=== PATIENT | female | born 1985 | race Hispanic/Latino ===

== ENCOUNTER 2019-07-17 15:20 | Emergency (ER) | payer SELFPAY ==
[2019-07-17 15:33] VITALS: BP 134/75; PULSE 81; RESP 14; TEMP 36.8; O2SAT 100
--- NOTE | 2019-07-17 17:42 | ED.GENADULT ---
HPI - General Adult General Chief complaint: Wound/Laceration Stated complaint: ABCESS ON LEFT HAND Time Seen by Provider: 07/17/19 15:49 Source: patient Mode of arrival: ambulatory Limitations: no limitations and language barrier History of Present Illness HPI narrative: Patient is a 33-year-old female who presents with a month's duration of red raised lesion to the palm of the hand patient denies injury or trauma or similar occurrence. Patient presents with lesion to the thenar eminence consistent with pyogenic granuloma. Patient denies fever injury trauma or other complaints and is otherwise resting comfortably in the room upon arrival in no distress Review of Systems Review of Systems: All systems reviewed & are unremarkable except as noted in HPI and below PMFSH Social History Social History (Updated 07/17/19 @ 17:43 by Jono Ocasio PA-C) Smoking status: Never smoker Gender identity (if verbalized by the patient): Female Exam Narrative: Exam Narrative: GENERAL: Well-appearing, well-nourished, and in no acute distress. HEAD: Normocephalic, atraumatic. EYES: PERRLA and EOMI. ENT: Nares clear, no rhinorrhea or epistaxis. Mucous membranes moist. EXTREMITIES: Normal range of motion. No edema. SKIN: Warm, dry, no rash. Patient with half centimeter red raised papule to the thenar eminence of the left hand consistent with pyogenic granuloma with small amount of bloody drainage NEURO: No focal deficits. Alert and oriented x3. Neurovascularly intact. Capillary refill less than 2 seconds PSYCH: Normal mood and affect. Course Course Emergency Course: Patient in the room in no distress aware of case findings treatment plan and diagnosis agreeing to follow-up as directed Vital Signs Vital signs: Vital Signs Temperature 98.3 F 07/17/19 15:33 Pulse Rate 81 07/17/19 15:33 Respiratory Rate 14 07/17/19 15:33 Blood Pressure 134/75 07/17/19 15:33 Pulse Oximetry 100 07/17/19 15:33 Temperature 98.3 F 07/17/19 15:33 Pulse Rate 81 07/17/19 15:33 Respiratory Rate 14 07/17/19 15:33 Blood Pressure 134/75 07/17/19 15:33 Pulse Oximetry 100 07/17/19 15:33 Procedures Other Procedure Procedure 1: Other Procedure: Wound was prepped with Shur-Clens spray patient had small piece of tissue excised with scissors measuring less than 2 mm which was cauterized to stop the bleeding nonadhesive dressing 4 x 4 and Coban placed post procedure. Neurovascularly intact pre-and post procedure Medical Decision Making MDM Narrative Medical decision making narrative: Patient in the room aware of case findings treatment plan and diagnosis agreeing to follow-up as directed or to return if symptoms worsen or concerns. Patient was given follow-up with hand surgeon advised to follow with primary care and given reasons to return Vital Signs Vital Signs: Vital Signs Temperature 98.3 F 07/17/19 15:33 Pulse Rate 81 07/17/19 15:33 Respiratory Rate 14 07/17/19 15:33 Blood Pressure 134/75 07/17/19 15:33 Pulse Oximetry 100 07/17/19 15:33 Temperature 98.3 F 07/17/19 15:33 Pulse Rate 81 07/17/19 15:33 Respiratory Rate 14 07/17/19 15:33 Blood Pressure 134/75 07/17/19 15:33 Pulse Oximetry 100 07/17/19 15:33 Discharge Plan Discharge Clinical Impression: Granuloma, pyogenic Patient Disposition: Home, Self-Care Condition: Stable Instructions: Antibiotic Form, Acute Wounds (ED) Additional Instructions: Follow-up with primary care and skin physician in the next 7 days for reevaluation Keep wound clean and dry Return if symptoms worsen or concerns or any increase in redness swelling pain fever over 100.5 or any loss of feeling or function in the extremity Follow patient education sheets Follow-up/Referrals: PHYSICIAN NOT ON STAFF,NONSTAFF [Primary Care Provider] - Taco Narayan MD [Physician] - William Olea MD [Physician] - Stand Alone Forms: Work/
== END 2019-07-17 17:57 | disposition home or self-care (01) ==
PROVIDERS: Emergency Provider Emergency Medicine
DX: L98.0 Pyogenic granuloma (principal)
CPT/HCPCS: 12001; 99282

== ENCOUNTER 2019-08-27 09:20 | Observation (INO) | payer SELFPAY ==
[2019-08-27] VITALS (7 sets, daily range): BP systolic 115–142; BP diastolic 80–95; PULSE 77–103; RESP 16–18; TEMP 36.3–36.6; O2SAT 98–100; BMI 29.6
--- NOTE | ~2019-08-27 | XR_ITS ---
EXAMINATION: XR chest 1V portable INDICATION: Left arm and facial weakness TECHNIQUE: Portable AP chest at 1001 hours COMPARISON: 10/09/2016 FINDINGS: The lungs are free of acute opacities. There is no pleural effusion or pneumothorax. The ca rdiomediastinal silhouette is normal. The visualized bones and soft tissues are unremarkable. IMPRESSION: 1. No acute cardiopulmonary abnormality. Reviewed, dictated and finalized at location A.
--- NOTE | ~2019-08-27 | MR_ITS ---
EXAMINATION: MR brain/brain stem wo/w con DATE: 08/27/2019 14:39 INDICATION: Left-sided paresthesias. Facial weakness. TECHNIQUE: Magnetic resonance imaging (MRI) of the brain and brainstem was performed without and with 13 mL MultiHance intravenous contrast. Sequences included sagittal and axial T1-weighted FSE, axial diffusion-weighted FS EPI, axial T2*-weighted GRE, axial T2-weighted FLAIR Propeller, and axial T2-we ighted Propeller. Postcontrast sequences included axial and coronal T1-weighted FSE. Apparent diffusi on coefficient (ADC) maps were created. COMPARISON: Head CT 08/27/2019 FINDINGS: There is no intracranial hemorrhage, acute infarction, or abnormal intracranial mass lesion . The ventricles are normal in size. The orbits are normal. There is mild mucosal thickening in right maxillary sinus. The mastoid air cells are normal. IMPRESSION: 1. Normal brain. Reviewed, dictated and finalized at location A. IMPRESSION: 1. Normal brain.
--- NOTE | ~2019-08-27 | CT_ITS ---
EXAMINATION: CTA brain carotid DATE: 08/27/2019 10:50 INDICATION: Left-sided weakness TECHNIQUE: Computed tomographic angiography (CTA) of the head was performed without and with 100 mL O mnipaque-350 intravenous contrast. CTA of the neck was performed with intravenous contrast. The dose- length product was 1558.58 mGy-cm. Maximum intensity projection and volume rendered 3D-reconstruction s were created by the technologist on a separate workstation. Automated exposure control and iterativ e reconstruction technique were employed. COMPARISON: None. FINDINGS: HEAD CTA: There is no intracranial hemorrhage, acute infarction, or abnormal mass lesion. The ventric les are normal. There is no abnormal mass effect or midline shift. The wang-white matter differentiat ion is normal. The basal cisterns are patent. The orbits are normal. The paranasal sinuses, mastoids and calvarium are normal. There is no significant stenosis of the basilar artery or posterior cerebral arteries. There is no si gnificant stenosis of the intracranial internal carotid arteries or the anterior or middle cerebral a rteries. The anterior communicating artery and posterior communicating arteries are normal. There is no aneurysm. NECK CTA: The thyroid gland is unremarkable. The submandibular and parotid glands are symmetric. Ther e is no lymphadenopathy. There are no masses identified. The airway is unremarkable. There are no oss eous abnormalities. The superior mediastinum is unremarkable. There is 0% stenosis of the proximal right internal carotid artery relative to normal distal artery l umen diameter (NASCET criteria). There is 0% stenosis of the proximal left internal carotid artery re lative to normal distal artery lumen diameter. IMPRESSION: 1. No acute intracranial abnormality. Normal head CTA. 2. 0% stenosis of the proximal right internal carotid artery relative to normal distal artery lumen d iameter (NASCET criteria). 3. 0% stenosis of the proximal left internal carotid artery relative to normal distal artery lumen di ameter. Reviewed, dictated and finalized at location A. IMPRESSION: 1. No acute intracranial abnormality. Normal head CTA. 2. 0% stenosis of the proximal right internal carotid artery relative to normal distal artery lumen diameter (NASCET criteria). 3. 0% stenosis of the proximal left internal carotid artery relative to normal distal artery lumen diameter.
--- NOTE | 2019-08-27 09:24 | ECG_ITS ---
Measurements Intervals [place] Rate: 103 P: 14 PA: 139 QRS: 15 QRSD: 88 T: -6 QT: 332 QTc: 435 Interpretive Statements SINUS TACHYCARDIA BORDERLINE ST-T WAVE ABNORMALITY- INFERIOR LEADS BASELINE ARTIFACT- V3 BORDERLINE ECG Electronically Signed On 08-27-2019 12:58:52 CDT by Joseph Lee D.O.
--- NOTE | 2019-08-27 09:57 | ED.NEUROSD ---
HPI - Neuro Symptoms/Deficit General Chief Complaint: Neuro Symptoms/Deficit Stated Complaint: left arm numbness Time Seen by Provider: 08/27/19 09:25 Source: patient and family Mode of arrival: ambulatory Limitations: language barrier (greek speaking, using stratus) History of Present Illness HPI Narrative: This patient is a 33 year old female who presents for evaluation of left facial and left arm numbness. She states she was washing dishes when she noticed numbness to her hold face and left hand. She also has left arm weakness. She denies left leg weakness or numbness. She denies any other complaints. She denies chest pain, sob, headache, dizziness or visual changes. Last Observed Normal: 08:30 Location: left face and left arm On Anticoagulants: No Related Data Home Medications Medication Instructions Recorded Confirmed No Home Medications 08/27/19 08/27/19 Allergies Allergy/AdvReac Type Severity Reaction Status Date / Time No Known Allergies Allergy Verified 08/27/19 17:37 Review of Systems Review of Systems: All systems reviewed & are unremarkable except as noted in HPI and below Eyes: Eyes: Denies change in vision Cardiovascular: Cardiovascular: Denies chest pain and Denies radiating jaw, neck or arm pain Respiratory: Respiratory: Denies cough and Denies dyspnea Gastrointestinal: Gastrointestinal: Denies abdominal pain, Denies nausea and Denies vomiting Neurologic: Reports focal weakness and Reports numbness PMFSH Past Medical History Medical History (Updated 08/27/19 @ 20:07 by Stacy Bustos MD) Patient denies medical problems Surgical History Surgical History (Updated 08/27/19 @ 12:09 by Stacy Bustos MD) No significant past surgical history Family History Family History (Updated 08/27/19 @ 17:31 by Jewell Woods NP) Unknown No family history of disorders Social History Social History (Updated 08/27/19 @ 17:32 by Jewell Woods NP) Social History: The patient has a significant other. She states that she does have a job. She has 1 son called Terrance. No durable power bankruptcy attorney for healthcare. She is a full code. She is a smoker drink or use illicit drugs. Smoking status: Never smoker Alcohol intake: current Drinks per week: 1 Substance use: never Substance use type: does not use Spiritual care concerns: No Exam Narrative: Exam Narrative: GENERAL: Well-appearing, well-nourished, and in no acute distress. HEAD: Normocephalic, atraumatic EYES: PERRLA and EOMI, conjunctiva clear without discharge NOSE: Nares clear, no rhinorrhea or epistaxis THROAT:Mucous membranes moist, Oropharynx normal without erythema, exudate, peritonsillar swelling or fluctuance NECK: Supple, without lymphadenopathy or mass RESPIRATORY: No respiratory distress, Airway patent, Respirations non-labored, Clear to auscultation without rales, rhonchi or wheeze HEART: Regular rate and rhythm. No murmur heard. Normal peripheral pulses. ABDOMEN: Soft, nontender, nondistended, normal active bowel sounds. No masses. No rebound or guarding, No organomegaly. EXTREMITIES: No edema, full range of motion. mild decreased left hand visual journalist strength SKIN: Warm, dry, normal color without rash NEURO: Alert and oriented x3. CN 2-12 grossly intact. PSYCH: Normal mood and affect. Course Reevaluation(s) Reevaluation #1: Patient states her symptoms have resolved. Date: 08/27/19 Time: 11:13 Consultations Consultation #1: I Discussed case with Dr. Chahal and Dr. Cristoabl . Patient to be admitted for TIA evaluation. Date: 08/27/19 Time: 12:07 Vital Signs Vital signs: Vital Signs Temperature 97.9 F 08/27/19 09:24 Pulse Rate 87 08/27/19 09:24 Respiratory Rate 18 08/27/19 09:24 Blood Pressure 142/80 H 08/27/19 09:24 Pulse Oximetry 100 08/27/19 09:24 Temperature 97.7 F 08/27/19 13:16 Pulse Rate 90 08/27/19 16:00 Respiratory Rate 18 08/27/19 13:16
[2019-08-27 10:08] LABS: Glucose Point of Care 125 (65-105)
[2019-08-27 10:12] LABS: Basophils Percent Auto 0.4 % (0.2-1.2); Eosinophils Absolute Auto 0.1 K/mm3 (0-0.3); Eosinophils Percent Auto 0.8 % (0-4.4); Hematocrit 40.7 % (37.0-47.0); Hemoglobin 13.2 g/dL (12.0-15.0); Immature Granulocyte Absolute 0.04 K/mm3 (0.00-0.031); Immature Granulocyte Percent A 0.4 % (0-0.5); Lymphocytes Absolute Auto 3.16 K/mm3 (0.9-3.2); Lymphocytes Percent Auto 35.4 % (18.3-44.2); Mean Corpuscular HGB Conc 32.4 g/dl (32-36); Mean Corpuscular Hemoglobin 28.8 pg (26-34); Mean Corpuscular Volume 88.9 fl (80-100); Mean Platelet Volume 9.4 fl (7.4-10.4); Monocytes Absolute Auto 0.5 K/mm3 (0.1-0.6); Monocytes Percent Auto 5.4 % (2.6-8.5); Neutrophils Absolute Auto 5.1 K/mm3 (1.3-6.7); Neutrophils Percent Auto 57.6 % (45.5-73.1); Platelet Count Result 424 k/mm3 (150-375); Red Blood Count 4.58 M/mm3 (4.2-5.4); Red Cell Distribution Width 13.7 % (11.5-14.5); White Blood Count 8.9 K/mm3 (4.5-10.0)
[2019-08-27 10:23] LABS: Blood Urea Nitrogen 11 mg/dL (7-17); Calcium 9.2 mg/dL (8.4-10.2); Carbon Dioxide 26 mmol/L (22-30); Chloride 101 mmol/L (98-107); Estimated Glomerular Filt Rate > 60; Glucose 126 mg/dL (65-105); Potassium 3.6 mmol/L (3.4-5.0); Sodium 138 mmol/L (137-145)
[2019-08-27 10:26] LABS: Prothrombin Time 12.5 Seconds (11.1-14.7)
[2019-08-27 10:27] LABS: Partial Thromboplastin Time 27.3 SECONDS (22.3-36.8)
[2019-08-27 10:35] LABS: Troponin I < 0.012 ng/mL (0.000-0.034)
[2019-08-27] MEDS: ASPIRIN 81 MG CHEWABLE TABLET 324 MG PO (12:43)
--- NOTE | 2019-08-27 13:30 | ADMGEN ---
This patient, Rosa Elena Flores, was admitted to Medical Room 250-01. Patient/family oriented to hospital policies and general routines including ID bracelet, bed and alarms, visiting hours, pain management, procedures, bathroom and other care routines, personal items, smoking policy, room service/diet, and visiting hours. Valuables list has been completed. Information on how to activate the Rapid Response Team has been discussed. Patient/Family are encouraged to report perceived risks to care and to ask questions if they do not understand what they are told or what they should do.
--- NOTE | 2019-08-27 13:30 | PC.NURSE ---
Patient arrived on floor. [id number] Ivania with patient. Patient is Angolan speaking and understands very little Fijian. Offered to use Stratus but [id number] speaks fluent Fijian and Angolan and is willing to interpret. Patient is agreeable to this as well. Admission completed using [id number] as an excellence specialist. MRI explained to patient and MRI screening form completed. [id number] also informed patient that we have [employer] interpreters available at all times and can call them if needed. Patient currently denies any further neuro symptoms. States the numbness in her left arm is resolved and she no longer has any symptoms of numbness or tingling.
--- NOTE | 2019-08-27 17:24 | PM.IMHP ---
H&P: HPI History of Present Illness Chief complaint: tia,left side numbness Narrative: Rosa Elena Flores is a 33 year old female who is primarily Turkish speaking. She does speak a little bit of angulation and we were able to communicate somewhat. Patient tells me that she no longer has any numbness or tingling to her arms. The patient came into the emergency room for evaluation of left facial left arm numbness. Which is now resolved. She was given an aspirin. She has no further complaints. Her CT and MRI of the brain or found to be negative. She has no other complaints at this time. No fever no chills. No nausea no vomiting no diarrhea. Date of service 08/27/2019 Review of Systems Review of Systems: All systems reviewed & are unremarkable except as noted in HPI and below Constitutional: Constitutional: Reports as per HPI and Reports no additional constitutional complaints Eyes: Eyes: Reports as per HPI and Reports no additional eye complaints ENT: Reports system reviewed and no additional complaints, except as documented and Reports Normal hearing present Cardiovascular: Cardiovascular: Reports no additional cardiovascular complaints Respiratory: Respiratory: Reports no additional respiratory complaints and Reports no additional respiratory complaints Gastrointestinal: Gastrointestinal: Reports as per HPI and Reports no additional gastrointestinal complaints Musculoskeletal: Musculoskeletal: Reports no additional musculoskeletal complaints Integumentary/Breasts: Skin/Breast: Reports system reviewed and no additional complaints, except as docu and Reports as per HPI Neurologic: Reports system reviewed and no additional complaints, except as documented, Reports as per HPI and Reports Normal hearing present Psychiatric: Psychiatric: Reports no additional psychiatric complaints and Reports as per HPI Endocrine: Endocrine: Reports no additional endocrine complaints Hematologic/Lymphatic: Hematologic/Lymphatic: Reports no additional hematologic/lymphatic complaints Allergic/Immunologic: Allergic/Immunologic: Reports no additional allergic/immunologic complaints [facility] Past Medical History Medical History (Updated 08/27/19 @ 17:35 by Jewell Woods NP) Patient denies medical problems Surgical History Surgical History (Updated 08/27/19 @ 12:09 by Stacy Bustos MD) No significant past surgical history Family History Family History (Updated 08/27/19 @ 17:31 by Jewell Woods NP) Unknown No family history of disorders Social History Social History (Updated 08/27/19 @ 17:32 by Jewell Woods NP) Social History: The patient has a significant other. She states that she does have a job. She has 1 son called Terrance. No durable power business attorney for healthcare. She is a full code. She is a smoker drink or use illicit drugs. Smoking status: Never smoker Alcohol intake: current Drinks per week: 1 Substance use: never Substance use type: does not use Spiritual care concerns: No Meds Home Medications and Allergies Allergies Allergy/AdvReac Type Severity Reaction Status Date / Time No Known Allergies Allergy Verified 08/27/19 12:22 Vital Signs Vital Signs - 24 hr 08/27/19 09:24 08/27/19 10:07 08/27/19 11:12 Temperature 36.6 C Pulse Rate 87 103 H 103 H Respiratory Rate 18 Blood Pressure 142/80 H 120/83 Pulse Oximetry 100 98 08/27/19 13:16 08/27/19 16:00 Temperature 36.5 C Pulse Rate 99 90 Respiratory Rate 18 Blood Pressure 126/95 H Pulse Oximetry 100 Exam Const: General: cooperative, healthy appearing, comfortable, no acute distress, well developed, alert, awake and Physically active Nutritional Appearance: average body habitus and well nourished Orientation/consciousness: oriented to person, oriented to place, oriented to time and patient oriented x3 Limitations: no limitations HENMT: Head: normal to inspection, No palpable skull fracture prese
[2019-08-28] VITALS: PULSE 72
--- NOTE | 2019-08-28 | ECHO_ITS ---
Patient Info Name: Rosa Elena Flores Age: 33 years : 1985 Gender: Female Ht: 59 in Wt: 147 lbs BSA: 1.69 m2 HR: 82 bpm BP: 105 / 69 mmHg Heart Rhythm: Sinus Rhythm Technical Quality: Good Exam Date: 08/28/2019 9:36 AM Exam Location: [facility] Patient Status: Inpatient Admit Date: 08/27/2019 Staff Ordering Physician: Jewell Woods NP Budget And Policy Analyst: Mane Herrera RDCS Attending Provider: Zofia Hurley PA-C Referring Physician: Chuck ALEXANDER; Exam Type: CA echo doppler w bubble study Study Info Indications 435.9 - TIA Complete two-dimensional, color flow and Doppler transthoracic echocardiogram is performed with agitated saline. Contrast/Agitated Saline Contrast/Ag. Saline: Agitated Saline Amount: 18.00 ml Administered By: Sonu Farfan RN Existing IV Access: Yes History/Risk Factors TIA symptoms w/ left sided numbness/tingling. Summary 1. Left ventricular systolic function is normal, estimated at 60-65%. 2. There is trace mitral valve regurgitation. 3. There is trace tricuspid valve regurgitation. 4. No pulmonary hypertension, estimated pulmonary arterial systolic pressure is 23 mmHg. Left Ventricle Left ventricular chamber dimension is normal. Left ventricular systolic function is normal, estimated at 60-65%. There is no increased left ventricular wall thickness. The left ventricular diastolic function is normal. Right Ventricle Right ventricular chamber dimension is normal. Right ventricular systolic function is normal. Left Atria Left atrial chamber dimension is normal. Right Atria Right atrial chamber dimension is normal. Atrial Septum Intact interatrial septum visualized by agitated saline imaging. Aortic Valve The aortic valve is trileaflet. There is no aortic valve stenosis. There is no aortic valve regurgitation. Pulmonic Valve The pulmonic valve is normal. There is no pulmonic valve stenosis. There is no pulmonic regurgitation. Mitral Valve The mitral valve has normal leaflets. There is no mitral valve stenosis. There is trace mitral valve regurgitation. Tricuspid Valve The tricuspid valve leaflets are normal. There is no significant tricuspid valve stenosis. There is trace tricuspid valve regurgitation. No pulmonary hypertension, estimated pulmonary arterial systolic pressure is 23 mmHg. Pericardium/Pleural The pericardium appears normal. There is no pericardial effusion. Inferior Vena Cava Normal inferior vena cava with >50% collapse upon inspiration consistent with normal right atrial pressure, 5 mmHg. Aorta The aortic root size at the sinus of Valsalva is normal. The prox ascending aorta size is normal. Left Ventricular Outflow Tract Name Value Normal LVOT 2D LVOT Diameter 1.9 cm LVOT Doppler LVOT Peak Gradient 5 mmHg LVOT Mean Gradient 2 mmHg LVOT VTI 20 cm LVOT VTI/AV VTI Ratio 0.9 LVOT Stroke Volume
[2019-08-28 04:00] VITALS: PULSE 82
[2019-08-28 05:10] LABS: Basophils Absolute Auto 0.1 K/mm3 (0.0-0.1); Basophils Percent Auto 0.5 % (0.2-1.2); Eosinophils Absolute Auto 0.2 K/mm3 (0-0.3); Eosinophils Percent Auto 1.5 % (0-4.4); Hematocrit 38.3 % (37.0-47.0); Hemoglobin 12.6 g/dL (12.0-15.0); Immature Granulocyte Absolute 0.04 K/mm3 (0.00-0.031); Immature Granulocyte Percent A 0.4 % (0-0.5); Lymphocytes Absolute Auto 3.56 K/mm3 (0.9-3.2); Lymphocytes Percent Auto 33.4 % (18.3-44.2); Mean Corpuscular HGB Conc 32.9 g/dl (32-36); Mean Corpuscular Volume 88.2 fl (80-100); Mean Platelet Volume 9.2 fl (7.4-10.4); Monocytes Absolute Auto 0.7 K/mm3 (0.1-0.6); Monocytes Percent Auto 6.4 % (2.6-8.5); Neutrophils Absolute Auto 6.2 K/mm3 (1.3-6.7); Neutrophils Percent Auto 57.8 % (45.5-73.1); Platelet Count Result 384 k/mm3 (150-375); Red Blood Count 4.34 M/mm3 (4.2-5.4); Red Cell Distribution Width 13.8 % (11.5-14.5); White Blood Count 10.7 K/mm3 (4.5-10.0)
[2019-08-28 05:26] LABS: Lactic Acid 1.2 mmol/L (0.7-2.1)
[2019-08-28 05:30] LABS: Alanine Aminotransferase 35 U/L (4-35); Albumin Level 4.3 g/dL (3.5-5.1); Alkaline Phosphatase 79 U/L (38-126); Aspartate Amino Transferase 31 U/L (14-36); Bilirubin,Total 0.5 mg/dL (0.2-1.3); Blood Urea Nitrogen 13 mg/dL (7-17); CRP 1.6 mg/dL (<1.0); Calcium 8.9 mg/dL (8.4-10.2); Carbon Dioxide 27 mmol/L (22-30); Chloride 100 mmol/L (98-107); Cholesterol 178 mg/dL (0-200); Estimated Glomerular Filt Rate > 60; Glucose 111 mg/dL (65-105); HDL Direct 27 mg/dL; Magnesium 2.1 mg/dL (1.6-2.3); Potassium 3.8 mmol/L (3.4-5.0); Sodium 135 mmol/L (137-145); Triglycerides 135 mg/dL (<150)
[2019-08-28 05:34] VITALS: BP 105/69; PULSE 79; RESP 16; TEMP 36.2; O2SAT 99
[2019-08-28 05:39] LABS: LDL Cholesterol Direct 124 mg/dL
[2019-08-28 08:00] VITALS: PULSE 84
[2019-08-28] MEDS: ASPIRIN 81 MG CHEWABLE TABLET PO (09:13)
[2019-08-28 12:00] VITALS: PULSE 80
--- NOTE | 2019-08-28 13:23 | CONS_ITS ---
DATE OF CONSULTATION: 08/27/2019 HISTORY OF PRESENT ILLNESS: A 33-year-old right-handed female has been admitted to [facility] through the emergency room for the complaint of tingling and numbness of the left side. She was initially evaluated in the emergency room. Symptomatology was resolved by the time she came to the floor. CT scan and MRI of the brain were negative with no other complaints in addition to the physician on the regular floor. The patient has no history of any other symptomatology. MEDICATIONS: She is not taking any medication. PAST SURGICAL HISTORY: Has had no surgery done in the past. SOCIAL HISTORY: She is current alcohol drinker, only 1 drink per week. Never smoker. ALLERGIES: NOT ALLERGIC TO ANY. PHYSICAL EXAMINATION: VITAL SIGNS: At the time of admission revealed a temp of 36.6, pulse 87, respirations 18, blood pressure 142/80, pulse ox 98 percent. GENERAL: Examination revealed her to be awake, alert, cooperative, in no obvious acute distress. No complaint of the headache. EAR, NOSE, THROAT: Examination normal. NECK: Supple with no cervical bruit. No thyromegaly. No lymphadenopathy. Normal range of motion. HEART: Regular with no murmur. LUNGS: Clear to auscultation. ABDOMEN: Soft. No organomegaly. NEUROLOGIC: She is awake, alert. Follows instruction by gesture. Pupils round, regular. Gastelum of vision full. Extraocular movements full. Face symmetrical. Tongue midline. Motor examination revealed no drift of one side or other side. Tone normal. Reflexes symmetrical. Plantars downgoing. LABORATORY STUDIES: Evaluation up until now revealed negative CT scan of the head, normal CTA of the brain, normal MRI of the brain. The patient's routine lab includes a CBC with WBC 10.7, hemoglobin 12.6, platelet count 384. Sodium 135, creatinine 0.60, glucose only 111. C-reactive protein 1.6. IMPRESSION AND PLAN: At this stage, she can be treated only for the possible transient ischemic attack. No further intervention is necessary. She can follow in the office and continue taking one baby aspirin daily. JESSIKA NUNEZ M.D. PRACTICAL NURSING INSTRUCTOR PRACTICAL NURSING INSTRUCTOR D I MT: Tom
[2019-08-28 13:55] VITALS: BP 128/84; PULSE 90; RESP 16; TEMP 36.3; O2SAT 100
--- NOTE | 2019-08-28 15:19 | PM.DS ---
DS: Admitting Diagnosis Admitting Diagnosis Admitting Diagnosis: Transient cerebral ischemic attack, unspecified DS: Discharge Diagnosis Discharge Diagnosis (1) TIA (transient ischemic attack): Code(s): G45.9 - Transient cerebral ischemic attack, unspecified Status: Acute Assessment and Plan: Head and neck CTA showed no acute intracranial abnormalities and 0% stenosis of right and left ICA. Brain MRI was normal and showed no evidence of intracranial hemorrhage, infarction, or mass. Echo was performed with EF normal at 60 to 65%, trace MR and TR, and normal pulmonary artery pressure. Electrolytes were within normal limits. Glucose was stable. Blood pressure was generally well controlled. Lipid panel was normal with a slightly decreased HDL. DS: Summary Hospital Course Reason for hospitalization: Left arm numbness Hospital Course: Date of admission: 08/27/2019 Date of discharge: 08/28/2019 Rosa Elena Flores is a previously healthy 33 year old female with no past medical history. Somali is her first language but she is able to communicate in Haitian. She presented to the emergency department on 08/27/2019 at approximately 10:00 a.m. with complaints of left facial and left arm numbness. It is noted that she was washing dishes when she noticed the numbness occur. She also complained of left-sided weakness, but denied headache, dizziness, or visual changes. At presentation, AVSS, CBC and BMP unremarkable with glucose 126, troponin <0.012, CXR with no acute cardiopulmonary abnormalities, and head and neck CTA performed as noted above. She was admitted to the hospitalist service and seen in consultation by neurology for workup of TIA, with results as noted above. Her numbness resolved entirely. By the time of my evaluation, she had no neurologic deficits, sensation was intact, and strength was 5/5 throughout. She was feeling much better and was eager to return home. We discussed worrisome signs and symptoms for which she should return, as well as lifestyle changes which she may benefit from implementing. She will begin taking a baby aspirin daily. She has been encouraged to follow-up with her PCP in 1-2 weeks and she may follow-up with neurology as needed. She was discharged home in hemodynamically stable condition on 08/28/2019. Status at Discharge Functional status at discharge: independent ambulation Overall status at discharge: patient is back to baseline Time Spent with Patient Time attestation: Total time spent providing and/or coordinating discharge services: 37 minutes Time spent: Greater than 30 minutes Exam Narrative: Exam Narrative: Ms. Tavia Flores is examined alone today. She is a well-nourished 33 year old female who is lying supine in bed. She appears comfortable and is in no acute respiratory distress. HR 79, BP 105/69, RR 16, T 97.1?, 99% on room air Neuro: awake, alert and oriented x4, speech clear, no focal neuro deficits noted, full sensation, strength 5/5 throughout, muscles with normal bulk and contour, able to perform plantar flexion and dorsiflexion HEENMT: normocephalic, atraumatic, face symmetric, EOMI, sclerae anicteric, moist oral mucosa, tongue midline Neck: supple, no lymphadenopathy Respiratory: clear to auscultation bilaterally, nonlabored breathing Cardio: regular rate, regular rhythm with S1-S2 Abdomen: Nondistended, normoactive bowel sounds, soft, nontender to palpation, Extremities: BLE without edema, erythema, cyanosis, clubbing, or tenderness to palpation, DP pulses 2+ bilaterally Skin: no rashes or lesions, warm and dry Psych: Appropriate mood and affect, judgment and insight intact DS: Data Data Completed and Pending Labs on day of discharge: Labs from last 24 hours 08/28/19 08/28/19 08/28/19 04:54 04:54 04:54 WBC RBC Hgb Hct MCV MCH MCHC RDW Plt Count MPV Immature Gran % (Auto) Neut % (Auto) Lymph % (Auto)
--- NOTE | 2019-08-28 15:29 | PCCCNOTE ---
On 08/28/19, the student, Glenys Pimentel, provided care and completed [facility] documentation on this patient. I have reviewed the student's documentation and agree with the findings.
--- NOTE | 2019-08-28 15:43 | PC.NURSE ---
Taina used for discharge instructions. Cheo #[id number] was the shell grader used to convey the discharge information to the patient. All questions and concerns answered at this time, patient verbalized understanding.
== END 2019-08-28 16:10 | disposition home or self-care (01) ==
LOC: ANHED 12:41 → ANH2MED 12:42
PROVIDERS: Nurse Practitioner; Admitting Provider Internal Medicine; Emergency Provider General Practice; Visit Provider Family Medicine
DX: G45.9 Transient cerebral ischemic attack, unspecified (principal)
CPT/HCPCS: 36415; 70496; 70498; 70553; 71045; 80048; 80053; 80061; 81025; 82948; 83605; 83735; 84443; 84484; 85025; 85610; 85730; 86140; 93005; 93306; 96375; 99285; A9270; A9577; G0378; G0379; Q9967

== ENCOUNTER 2020-02-20 03:38 | Emergency (ER) | payer SELFPAY ==
--- NOTE | ~2020-02-20 | CT_ITS ---
EXAMINATION: CT brain wo con INDICATION: Dizziness COMPARISON: 08/27/2019 TECHNIQUE: Standard unenhanced head CT. The dose-length product (DLP) was 529.67 mGy-cm. The mA was a djusted according to patient size. Iterative reconstruction technique was employed. FINDINGS: There is no intracranial hemorrhage, acute infarction, or abnormal mass lesion. The ventric les are normal. There is no abnormal mass effect or midline shift. The wang-white matter differentiat ion is normal. The basal cisterns are patent. The orbits are normal. The paranasal sinuses, mastoids and calvarium are normal. IMPRESSION: 1. No acute intracranial abnormality. Reviewed, dictated and finalized at location A. INE CLE[employer]ER
[2020-02-20 03:48] VITALS: BP 116/84; PULSE 84; RESP 17; TEMP 36.9; O2SAT 100
--- NOTE | 2020-02-20 03:56 | ED.GENADULT ---
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 She reports sudden onset dizziness at 630 pm yesterday. She states she feels like the room is spinning when she lays down. She denies associated headache, otalgia, ear drainage or sinus concerns. She reports she had some blurred vision but that has resolved. She also denies associated focal weakness, numbness or tingling. Related Data Allergies Allergy/AdvReac Type Severity Reaction Status Date / Time No Known Allergies Allergy Verified 08/27/19 17:37 Review of Systems Review of Systems: All systems reviewed & are unremarkable except as noted in HPI and below PMFSH Past Medical History Medical History (Updated 02/20/20 @ 06:42 by Stacy Bustos MD) Patient denies medical problems Surgical History Surgical History (Updated 08/27/19 @ 12:09 by Stacy Bustos MD) No significant past surgical history Family History Family History (Updated 08/27/19 @ 17:31 by Jewell Woods NP) Unknown No family history of disorders Social History Social History (Updated 08/27/19 @ 17:32 by Jewell Woods NP) Social History: The patient has a significant other. She states that she does have a job. She has 1 son called Terrance. No durable power deputy prosecuting attorney for healthcare. She is a full code. She is a smoker drink or use illicit drugs. Smoking status: Never smoker Alcohol intake: current Drinks per week: 1 Substance use: never Substance use type: does not use Spiritual care concerns: No Exam Const: General: no acute distress and alert Orientation/consciousness: patient oriented x3 HENMT: Head: normal to inspection Ears: external ears normal and TM's normal bilaterally Eyes: Alignment and Position: alignment normal Eyelids: eyelids normal Conjunctivae: conjunctivae normal Pupils: Equal, round and reactive pupils present EOM: EOMs intact bilaterally Other: no nystagmus Neck: Neck: normal visual inspection Chest: Chest palpation & inspection: normal inspection of the chest Resp: Effort & Inspection: normal respiratory effort Cardio: Rate: regular rate Rhythm: regular rhythm Heart sounds: no murmurs GI: GI Palp: Yes Soft to palpation, No Tenderness to palpation present (GI) and No Guarding due to palpation present (GI) Auscultation: normal bowel sounds Skin: General skin exam: normal color Rashes: no rashes Neuro: General: patient oriented x3, moves all extremities, no meningeal signs, no focal motor deficits and CN's II-XI intact bilaterally Cranial nerves: Yes Nystagmus not present Speech: normal speech Gait exam (Neuro): Normal gait present Extrem: General: normal to inspection Psych: Mental Status: mental status grossly normal Affect: normal affect Course Reevaluation(s) Reevaluation #1: I 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 She reports only small amount of dizziness. She denies nausea or vomiting. She has no neurological deficits to suggest CVA. I discussed treatment for vertigo. Date: 02/20/20 Time: 06:39 Vital Signs Vital signs: Vital Signs Temperature 98.4 F 02/20/20 03:48 Pulse Rate 84 02/20/20 03:48 Respiratory Rate 17 02/20/20 03:48 Blood Pressure 116/84 02/20/20 03:48 Pulse Oximetry 100 02/20/20 03:48 Temperature 98.4 F 02/20/20 03:48 Pulse Rate 68 02/20/20 05:10 Respiratory Rate 15 02/20/20 05:10 Blood Pressure 115/79 02/20/20 05:10 Pulse Oximetry 98 02/20/20 05:10 Medical Decision Making Vital Signs Vital Signs: Vital Signs Temperature 98.4 F 02/20/20 03:48 Pulse Rate 84 02/20/20 03:48 Resp
[2020-02-20] MEDS: ONDANSETRON INJ 4 MG/2 ML VIAL IV PUSH (04:09)
[2020-02-20] MEDS: MECLIZINE HCL 25 MG TABLET PO (04:10)
[2020-02-20 04:13] VITALS: BP 125/79; BP 128/85; BP 129/82; PULSE 81; PULSE 91; PULSE 95
[2020-02-20 04:23] LABS: Basophils Percent Auto 0.4 % (0.2-1.2); Eosinophils Percent Auto 0.4 % (0-4.4); Hematocrit 40.7 % (37.0-47.0); Hemoglobin 13.2 g/dL (12.0-15.0); Immature Granulocyte Absolute 0.03 K/mm3 (0.00-0.031); Immature Granulocyte Percent A 0.3 % (0-0.5); Lymphocytes Absolute Auto 2.39 K/mm3 (0.9-3.2); Lymphocytes Percent Auto 23.8 % (18.3-44.2); Mean Corpuscular HGB Conc 32.4 g/dl (32-36); Mean Corpuscular Hemoglobin 28.2 pg (26-34); Monocytes Absolute Auto 0.5 K/mm3 (0.1-0.6); Monocytes Percent Auto 5.1 % (2.6-8.5); Platelet Count Result 405 k/mm3 (150-375); Red Blood Count 4.68 M/mm3 (4.2-5.4); Red Cell Distribution Width 14.3 % (11.5-14.5); White Blood Count 10.1 K/mm3 (4.5-10.0)
[2020-02-20 04:36] LABS: Add Urine Microscopic? YES; Appearance Urine Clear (Clear); Bilirubin Urine Negative (Negative); Blood Urine 2+ (Negative); Color Urine Yellow (Yellow); Glucose Urine UA Negative (Negative); Ketones Urine Negative (Negative); Leukocyte Esterase Ur Trace LEU/UL (Negative); Mucus Urine Few /lpf; Nitrate Urine Negative (Negative); Protein Urine Negative (Negative); Squamous Epithelial Cell Urine Many /hpf (Few); Urobilinogen Urine Negative mg/dL (<2.0)
[2020-02-20 04:41] LABS: Alanine Aminotransferase 22 U/L (4-35); Albumin Level 4.6 g/dL (3.5-5.1); Alkaline Phosphatase 88 U/L (38-126); Anion Gap 7 mmol/L (8-16); Aspartate Amino Transferase 26 U/L (14-36); Bilirubin,Total 0.4 mg/dL (0.2-1.3); Blood Urea Nitrogen 10 mg/dL (7-17); Calcium 9.5 mg/dL (8.4-10.2); Carbon Dioxide 30 mmol/L (22-30); Chloride 102 mmol/L (98-107); Estimated Glomerular Filt Rate > 60; Glucose 139 mg/dL (65-105); Lipase 42 U/L (23-300); Potassium 4.1 mmol/L (3.4-5.0); Sodium 139 mmol/L (137-145)
[2020-02-20 05:10] VITALS: BP 115/79; PULSE 68; RESP 15; O2SAT 98
[2020-02-20] MEDS: PROMETHAZINE HCL 25 MG/ML AMPUL 12.5 MG IV PUSH (05:27)
--- NOTE | 2020-02-20 05:31 | PC.NURSE ---
50mL normal saline used for dilution and administration of promethazine.
[2020-02-20 06:56] VITALS: BP 110/62; PULSE 75; RESP 14; TEMP 36.7; O2SAT 96
== END 2020-02-20 06:57 | disposition home or self-care (01) ==
PROVIDERS: Emergency Provider General Practice
DX: R42 Dizziness and giddiness (principal)
CPT/HCPCS: 36415; 70450; 80053; 81001; 81025; 83690; 85025; 87086; 96374; 96375; 99284; A9270; J2405; J2550

== ENCOUNTER 2020-06-13 21:06 | Emergency (ER) | payer SELFPAY ==
--- NOTE | ~2020-06-13 | XR_ITS ---
EXAMINATION: XR chest 2V DATE: 06/13/2020 21:31 INDICATION: Left chest pain. Shortness of breath. TECHNIQUE: Frontal and lateral views of the chest were obtained. COMPARISON: Chest single view 08/27/2019, chest CT 10/09/2016 FINDINGS: The chest demonstrates clear lungs without pneumonia, pleural effusion, or pneumothorax. Th e heart size is normal. IMPRESSION: 1. No acute cardiopulmonary disease. Reviewed, dictated and finalized at location A.
--- NOTE | 2020-06-13 21:07 | ECG_ITS ---
Measurements Intervals [place] Rate: 94 P: 23 [place]: 121 QRS: 16 QRSD: 86 T: -5 QT: 351 QTc: 439 Interpretive Statements SINUS RHYTHM BORDERLINE T WAVE ABNORMALITY- INFERIOR LEADS BASELINE ARTIFACT- III, AVR, AVF, V1-V2 BORDERLINE ECG Electronically Signed On 06-14-2020 6:55:02 CDT by Joseph Lee D.O.
[2020-06-13 21:13] VITALS: BP 139/124; PULSE 95; RESP 16; TEMP 36.7; O2SAT 100
[2020-06-13 21:25] LABS: Basophils Absolute Auto 0.1 K/mm3 (0.0-0.1); Basophils Percent Auto 0.5 % (0.2-1.2); Eosinophils Absolute Auto 0.1 K/mm3 (0-0.3); Eosinophils Percent Auto 1.2 % (0-4.4); Hematocrit 40.7 % (37.0-47.0); Hemoglobin 13.2 g/dL (12.0-15.0); Immature Granulocyte Absolute 0.04 K/mm3 (0.00-0.031); Immature Granulocyte Percent A 0.4 % (0-0.5); Lymphocytes Absolute Auto 4.74 K/mm3 (0.9-3.2); Lymphocytes Percent Auto 44.7 % (18.3-44.2); Mean Corpuscular HGB Conc 32.4 g/dl (32-36); Mean Corpuscular Hemoglobin 28.8 pg (26-34); Mean Corpuscular Volume 88.9 fl (80-100); Mean Platelet Volume 8.7 fl (7.4-10.4); Monocytes Absolute Auto 0.7 K/mm3 (0.1-0.6); Monocytes Percent Auto 6.7 % (2.6-8.5); Neutrophils Absolute Auto 4.9 K/mm3 (1.3-6.7); Neutrophils Percent Auto 46.5 % (45.5-73.1); Platelet Count Result 416 k/mm3 (150-375); Red Blood Count 4.58 M/mm3 (4.2-5.4); Red Cell Distribution Width 13.8 % (11.5-14.5); White Blood Count 10.6 K/mm3 (4.5-10.0)
[2020-06-13] MEDS: ASPIRIN 81 MG CHEWABLE TABLET 324 MG PO (21:33)
[2020-06-13] MEDS: KETOROLAC 15 MG/ML VIAL (*BKC) IV PUSH (21:34)
[2020-06-13 21:35] LABS: INR 0.9; Prothrombin Time 12.9 Seconds (11.1-14.7)
[2020-06-13 21:36] LABS: Partial Thromboplastin Time 28.9 SECONDS (22.3-36.8)
[2020-06-13 21:39] LABS: Alanine Aminotransferase 21 U/L (4-35); Albumin Level 4.8 g/dL (3.5-5.1); Alkaline Phosphatase 80 U/L (38-126); Aspartate Amino Transferase 26 U/L (14-36); Bilirubin,Total 0.3 mg/dL (0.2-1.3); Lipase 56 U/L (23-300)
[2020-06-13 21:40] LABS: Anion Gap 6 mmol/L (8-16); Blood Urea Nitrogen 9 mg/dL (7-17); Calcium 9.7 mg/dL (8.4-10.2); Carbon Dioxide 31 mmol/L (22-30); Chloride 104 mmol/L (98-107); Estimated Glomerular Filt Rate > 60; Glucose 106 mg/dL (65-105); Potassium 3.6 mmol/L (3.4-5.0); Sodium 141 mmol/L (137-145)
[2020-06-13 21:51] LABS: Troponin I < 0.012 ng/mL (0.000-0.034)
--- NOTE | 2020-06-13 22:34 | ED.GENADULT ---
HPI - General Adult General Chief complaint: Chest Pain Stated complaint: chest pain Time Seen by Provider: 06/13/20 21:11 History of Present Illness HPI narrative: Patient is a 34-year-old female who presents the emergency department with chief complaint of chest wall pain. The patient reported she has been having pain in the left side of her chest that she reports is heaviness but also reports that it is worse with inspiration and worse with movement. Patient states that she is not had any fever chills denies trauma the patient denies prior history of cardiac disease. Patient denies smoking Related Data Allergies Allergy/AdvReac Type Severity Reaction Status Date / Time No Known Allergies Allergy Verified 08/27/19 17:37 PMFSH Past Medical History Medical History Patient denies medical problems Surgical History Surgical History No significant past surgical history Family History Family History Unknown No family history of disorders Social History Social History Social History: The patient has a significant other. She states that she does have a job. She has 1 son called Terrance. No durable power immigration attorney for healthcare. She is a full code. She is a smoker drink or use illicit drugs. Smoking status: Never smoker Alcohol intake: current Drinks per week: 1 Substance use: never Substance use type: does not use Spiritual care concerns: No Exam Narrative: Exam Narrative: GENERAL: Well-appearing, well-nourished, and in no acute distress. HEAD: Normocephalic, atraumatic. EYES: PERRLA and EOMI. ENT: Nares clear, no rhinorrhea or epistaxis. Mucous membranes moist. NECK: Supple. CHEST: Clear to auscultation. No respiratory distress. Chest wall is tender to palpation in the left sternal border. HEART: Regular rate and rhythm. No murmur heard. Normal peripheral pulses. ABDOMEN: Soft, nontender, nondistended, normal active bowel sounds. EXTREMITIES: Normal range of motion. No edema. SKIN: Warm, dry, no rash. NEURO: No focal deficits. Alert and oriented x3. PSYCH: Normal mood and affect. Course Vital Signs Vital signs: Vital Signs Temperature 36.7 C 06/13/20 21:13 Pulse Rate 95 06/13/20 21:13 Respiratory Rate 16 06/13/20 21:13 Blood Pressure 139/124 H 06/13/20 21:13 Pulse Oximetry 100 06/13/20 21:13 Temperature 36.7 C 06/13/20 21:13 Pulse Rate 95 06/13/20 21:13 Respiratory Rate 16 06/13/20 21:13 Blood Pressure 139/124 H 06/13/20 21:13 Pulse Oximetry 100 06/13/20 21:13 Medical Decision Making Vital Signs Vital Signs: Vital Signs Temperature 36.7 C 06/13/20 21:13 Pulse Rate 95 06/13/20 21:13 Respiratory Rate 16 06/13/20 21:13 Blood Pressure 139/124 H 06/13/20 21:13 Pulse Oximetry 100 06/13/20 21:13 Temperature 36.7 C 06/13/20 21:13 Pulse Rate 95 06/13/20 21:13 Respiratory Rate 16 06/13/20 21:13 Blood Pressure 139/124 H 06/13/20 21:13 Pulse Oximetry 100 06/13/20 21:13 Lab Data Result diagrams: 06/13/20 21:20 06/13/20 21:20 Labs: Lab Results 06/13/20 06/13/20 06/13/20 Range/Units 21:18 21:20 21:20 WBC 10.6 H (4.5-10.0) K/mm3 RBC 4.58 (4.2-5.4) M/mm3 Hgb 13.2 (12.0-15.0) g/dL Hct 40.7 (37.0-47.0) % MCV 88.9 (80-100) fl MCH 28.8 (26-34) pg MCHC 32.4 (32-36) g/dl RDW 13.8 (11.5-14.5) % Plt Count 416 H (150-375) k/mm3 MPV 8.7 (7.4-10.4) fl Immature Gran % (Auto) 0.4 (0-0.5) % Neut % (Auto) 46.5 (45.5-73.1) % Lymph % (Auto) 44.7 H (18.3-44.2) % [place] % (Auto) 6.7 (2.6-8.5) % Eos % (Auto) 1.2 (0-4.4) % Baso % (Auto) 0.5 (0.2-1.2) % Lymph # (Auto) 4.74 H (0.9-3.
[2020-06-13 22:45] VITALS: BP 106/72; PULSE 74; RESP 16; TEMP 36.8; O2SAT 100
== END 2020-06-13 22:46 | disposition home or self-care (01) ==
PROVIDERS: Emergency Provider Emergency Medicine
DX: R07.89 Other chest pain (principal); R94.31 Abnormal electrocardiogram [ECG] [EKG]
CPT/HCPCS: 36415; 71046; 80048; 80076; 83690; 84484; 85025; 85610; 85730; 93005; 96374; 99284; A9270; J1885

== ENCOUNTER 2020-07-08 20:48 | Emergency (ER) | payer SELFPAY ==
[2020-07-08 21:39] VITALS: BP 137/85; PULSE 89; RESP 18; TEMP 36.7; O2SAT 99
[2020-07-09 01:22] VITALS: BP 121/68; PULSE 78; RESP 16; O2SAT 99
[2020-07-09 01:30] LABS: Basophils Percent Auto 0.4 % (0.2-1.2); Eosinophils Absolute Auto 0.2 K/mm3 (0-0.3); Eosinophils Percent Auto 1.5 % (0-4.4); Hematocrit 38.9 % (37.0-47.0); Hemoglobin 12.5 g/dL (12.0-15.0); Immature Granulocyte Absolute 0.04 K/mm3 (0.00-0.031); Immature Granulocyte Percent A 0.4 % (0-0.5); Lymphocytes Absolute Auto 4.04 K/mm3 (0.9-3.2); Lymphocytes Percent Auto 37.5 % (18.3-44.2); Mean Corpuscular HGB Conc 32.1 g/dl (32-36); Mean Corpuscular Hemoglobin 28.3 pg (26-34); Mean Corpuscular Volume 88.2 fl (80-100); Mean Platelet Volume 8.8 fl (7.4-10.4); Monocytes Absolute Auto 0.7 K/mm3 (0.1-0.6); Monocytes Percent Auto 6.3 % (2.6-8.5); Neutrophils Absolute Auto 5.8 K/mm3 (1.3-6.7); Neutrophils Percent Auto 53.9 % (45.5-73.1); Platelet Count Result 371 k/mm3 (150-375); Red Blood Count 4.41 M/mm3 (4.2-5.4); Red Cell Distribution Width 13.6 % (11.5-14.5); White Blood Count 10.8 K/mm3 (4.5-10.0)
[2020-07-09] MEDS: diphenhydrAMINE HCl INJ 50 MG/ML VIAL 25 MG IV PUSH (01:35)
[2020-07-09] MEDS: KETOROLAC 30 MG/ML VIAL (*BKC) IV PUSH (01:35)
[2020-07-09] MEDS: SODIUM CHLORIDE 0.9% IV 1,000 ML 999 ML IV CONT (01:35)
[2020-07-09] MEDS: METOCLOPRAMIDE HCL INJ 10 MG/2 ML VIAL IV PUSH (01:35)
[2020-07-09 01:47] LABS: Alanine Aminotransferase 19 U/L (4-35); Albumin Level 4.5 g/dL (3.5-5.1); Alkaline Phosphatase 78 U/L (38-126); Anion Gap 9 mmol/L (8-16); Aspartate Amino Transferase 27 U/L (14-36); Bilirubin,Total 0.3 mg/dL (0.2-1.3); Blood Urea Nitrogen 11 mg/dL (7-17); Calcium 9.9 mg/dL (8.4-10.2); Carbon Dioxide 29 mmol/L (22-30); Chloride 104 mmol/L (98-107); Estimated CRCL calculation 93 ml/min; Estimated Glomerular Filt Rate > 60; Glucose 108 mg/dL (65-105); Lipase 62 U/L (23-300); Potassium 4.2 mmol/L (3.4-5.0); Sodium 142 mmol/L (137-145)
--- NOTE | 2020-07-09 01:50 | ED.HA ---
HPI - Headache General Chief Complaint: Headache Stated Complaint: headache Time Seen by Provider: 07/09/20 00:21 History of Present Illness HPI Narrative: Patient is a 34-year-old female who presents ER with left-sided headache. Began yesterday and has been persistent. No relief with [id number] medication. Reports it has a numb sensation as well that side of her head. No slurred speech or change in vision or change in hearing. No aggravating or alleviating factors that she can identify. Patient also reports that she has been having some epigastric pain for same amount of time. No nausea/vomiting with this. Does not seem to be worsened by eating or drinking. Located in her upper abdomen does not radiate. Related Data Allergies Allergy/AdvReac Type Severity Reaction Status Date / Time No Known Allergies Allergy Verified 07/08/20 21:42 Review of Systems Review of Systems: All systems reviewed & are unremarkable except as noted in HPI and below Constitutional: Constitutional: Denies chills, Denies fever(s) and Denies weakness Eyes: Eyes: Denies change in vision and Denies photophobia Gastrointestinal: Gastrointestinal: Reports abdominal pain, Denies diarrhea, Denies nausea and Denies vomiting Neurologic: Denies syncope, Reports headache(s), Denies focal weakness and Reports numbness PMFSH Past Medical History Medical History Patient denies medical problems Surgical History Surgical History No significant past surgical history Family History Family History Unknown No family history of disorders Social History Social History Social History: The patient has a significant other. She states that she does have a job. She has 1 son called Terrance. No durable power district attorney for healthcare. She is a full code. She is a smoker drink or use illicit drugs. Smoking status: Never smoker Alcohol intake: current Drinks per week: 1 Substance use: never Substance use type: does not use Spiritual care concerns: No Exam Narrative: Exam Narrative: GENERAL: Well-appearing, well-nourished, and in no acute distress. HEAD: Normocephalic, atraumatic. EYES: PERRL and EOMI. CHEST: Clear to auscultation. No respiratory distress. HEART: Regular rate and rhythm. Normal peripheral pulses. ABDOMEN: Soft, mild epigastric discomfort without guarding, nondistended, normal active bowel sounds. EXTREMITIES: Normal range of motion. No edema. SKIN: Warm, dry, no rash. NEURO: Clear speech. Cranial nerves II through XII intact. Alert and oriented x3. PSYCH: Normal mood and affect. Course Course Emergency Course: Headache symptoms resolved with Reglan/Benadryl/Toradol. No abdominal pain at this time. Informed results. Discharge home. Vital Signs Vital signs: Vital Signs Temperature 98.1 F 07/08/20 21:39 Pulse Rate 89 07/08/20 21:39 Respiratory Rate 18 07/08/20 21:39 Blood Pressure 137/85 07/08/20 21:39 Pulse Oximetry 99 07/08/20 21:39 Temperature 98.1 F 07/08/20 21:39 Pulse Rate 89 07/08/20 21:39 Respiratory Rate 18 07/08/20 21:39 Blood Pressure 137/85 07/08/20 21:39 Pulse Oximetry 99 07/08/20 21:39 MDM - Headache Lab Data Result diagrams: 07/09/20 01:25 Labs: Lab Results 07/09/20 07/09/20 Range/Units 01:25 01:33 Sodium 142 (137-145) mmol/L Potassium 4.2 (3.4-5.0) mmol/L Chloride 104 (98-107) mmol/L Carbon Dioxide 29 (22-30) mmol/L Anion Gap 9 (8-16) mmol/L BUN 11 (7-17) mg/dL Creatinine 0.60 L (0.7-1.0) mg/dL Estim Creat Clear Calc 93 ml/min Estimated GFR > 60 (59 - ) Glucose 108 H (65-105) mg/dL Calcium 9.9 (8.4-10.2) mg/dL Total Bilirubin 0.3 (0.2-1.3)
[2020-07-09 01:58] LABS: Appearance Urine Clear (Clear); Bilirubin Urine Negative (Negative); Blood Urine 1+ (Negative); Color Urine Yellow (Yellow); Glucose Urine UA Negative (Negative); Ketones Urine Negative (Negative); Leukocyte Esterase Ur Negative LEU/UL (Negative); Nitrate Urine Negative (Negative); Protein Urine Negative (Negative); Specific Grav Ur 1.025 (1.001-1.035)
[2020-07-09 02:09] LABS: Amorphous Sediment Urine Few; Bacteria Urine Trace /hpf; Mucus Urine Rare /lpf; Squamous Epithelial Cell Urine Rare /hpf (Few)
[2020-07-09 02:11] LABS: Add Urine Microscopic? YES
[2020-07-09 02:55] VITALS: BP 124/71; PULSE 74; RESP 14; O2SAT 99
== END 2020-07-09 02:55 | disposition home or self-care (01) ==
PROVIDERS: Emergency Provider Emergency Medicine
DX: G43.909 Migraine, unspecified, not intractable, without status migrainosus (principal)
CPT/HCPCS: 36415; 80053; 81001; 83690; 85025; 96361; 96374; 96375; 99284; J1200; J1885; J2765; J7030

== ENCOUNTER 2020-08-05 20:38 | Emergency (ER) | payer SELFPAY ==
--- NOTE | ~2020-08-05 | CT_ITS ---
EXAMINATION: CT brain wo con EXAM DATE: 08/05/2020 21:50 INDICATION: Left hand and arm paresthesia for one day. TECHNIQUE: Spiral CT of the head was performed without contrast. Axial, coronal and sagittal images were reviewed. The dose-length product (DLP) for this examination was 529.67 mGy-cm. The exposure w as tailored according to patient size, and iterative reconstruction (ASIR) was used as additional dos e reduction technique. Comparison is made to prior examination from 02/20/2020. FINDINGS: There is no acute intraparenchymal hemorrhage. No evidence of intraparenchymal brain mass lesion. No evidence of acute infarction. There is no mass effect or midline shift. The ventricles are normal in size. There are no extra-axial collections. There are no acute calvarial fractures. T he orbits are unremarkable. Soft tissue is unremarkable. The visualized sinuses and mastoid air [place] ls are well aerated. IMPRESSION: 1. No acute intracranial findings. Reviewed, dictated and finalized at location A.
--- NOTE | ~2020-08-05 | XR_ITS ---
EXAMINATION: XR chest 1V portable EXAM DATE: 08/05/2020 21:43 INDICATION: Numbness left side of head. Left arm paresthesia. TECHNIQUE: Portable AP frontal chest x-ray was obtained. Comparison is made to prior examination from 06/13/2020. FINDINGS: The lungs are clear. There are no pleural effusions. Cardiomediastinal silhouette is norm al. There is no pneumothorax suspected. The bones and soft tissues are unremarkable. IMPRESSION: No acute cardiopulmonary findings. Reviewed, dictated and finalized at location A.
--- NOTE | ~2020-08-05 | CT_ITS ---
EXAMINATION: CTA brain carotid EXAM DATE: 08/05/2020 23:47 INDICATION: Left sided numbness . TECHNIQUE: Spiral CTA of the carotid arteries was performed with intravenous injection 100 cc of Om nipaque 350. Axial, coronal, sagittal reformatted images reviewed. Additional reformatted images cre ated on dedicated 3-D workstation. NASCET comparable standard used to assess the degree of arterial stenosis. Spiral CT angiogram cerebral arteries performed with the same intravenous injection of con trast. Source images of the brain CTA transferred to dedicated workstation for 3-D rotational image c reation. Coronal, sagittal maximum intensity pixel images also reviewed. The dose-length product (D LP) for this examination was 952.72 mGy-cm. The exposure was tailored according to patient size, an d iterative reconstruction (ASIR) was used as additional dose reduction technique. There is no prio r study for comparison. FINDINGS: There is no carotid bulb plaque, 0% carotid stenosis bilaterally. There is no carotid or v ertebral basilar arterial dissection or fibromuscular dysplasia. There are no cerebral artery aneurys ms. There is symmetric cerebral artery arborization. The sagittal, transverse and sigmoid sinuses enh ance normally, no venous sinus thrombosis. Internal cerebral veins also enhance normally. Incidental Findings: None. IMPRESSION: 1. No acute carotid or intracranial findings. 2. Carotid bulb 0% stenosis bilaterally. Reviewed, dictated and finalized at location A.
[2020-08-05 20:57] VITALS: BP 131/81; PULSE 91; RESP 20; TEMP 36.7; O2SAT 100
--- NOTE | 2020-08-05 21:32 | ECG_ITS ---
Measurements Intervals [place] Rate: 94 P: 14 [place]: 134 QRS: 21 QRSD: 88 T: -7 QT: 335 QTc: 421 Interpretive Statements SINUS RHYTHM BORDERLINE T WAVE ABNORMALITY- ANT/INF LEADS BORDERLINE ECG Electronically Signed On 08-06-2020 6:02:14 CDT by Joseph Lee D.O.
[2020-08-05 22:07] VITALS: BP 125/84; PULSE 92; RESP 20; O2SAT 99
[2020-08-05 22:19] LABS: Anion Gap 11 mmol/L (8-16); Blood Urea Nitrogen 10 mg/dL (7-17); Calcium 9.4 mg/dL (8.4-10.2); Carbon Dioxide 26 mmol/L (22-30); Chloride 105 mmol/L (98-107); Estimated CRCL calculation 91 ml/min; Estimated Glomerular Filt Rate > 60; Glucose 109 mg/dL (65-105); INR 0.9; Potassium 3.3 mmol/L (3.4-5.0); Sodium 142 mmol/L (137-145)
[2020-08-05 22:20] LABS: Partial Thromboplastin Time 27.3 SECONDS (22.3-36.8)
[2020-08-05 22:22] LABS: Basophils Percent Auto 0.4 % (0.2-1.2); Eosinophils Absolute Auto 0.2 K/mm3 (0-0.3); Eosinophils Percent Auto 1.9 % (0-4.4); Hematocrit 37.4 % (37.0-47.0); Hemoglobin 12.1 g/dL (12.0-15.0); Immature Granulocyte Absolute 0.04 K/mm3 (0.00-0.031); Immature Granulocyte Percent A 0.4 % (0-0.5); Lymphocytes Absolute Auto 3.79 K/mm3 (0.9-3.2); Lymphocytes Percent Auto 33.8 % (18.3-44.2); Mean Corpuscular HGB Conc 32.4 g/dl (32-36); Mean Corpuscular Hemoglobin 28.3 pg (26-34); Mean Corpuscular Volume 87.4 fl (80-100); Mean Platelet Volume 8.8 fl (7.4-10.4); Monocytes Absolute Auto 0.7 K/mm3 (0.1-0.6); Monocytes Percent Auto 6.3 % (2.6-8.5); Neutrophils Absolute Auto 6.4 K/mm3 (1.3-6.7); Neutrophils Percent Auto 57.2 % (45.5-73.1); Platelet Count Result 437 k/mm3 (150-375); Red Blood Count 4.28 M/mm3 (4.2-5.4); Red Cell Distribution Width 13.6 % (11.5-14.5); White Blood Count 11.2 K/mm3 (4.5-10.0)
[2020-08-05 22:31] LABS: Troponin I < 0.012 ng/mL (0.000-0.034)
[2020-08-05 23:15] VITALS: BP 116/81; PULSE 94; RESP 18; O2SAT 100
[2020-08-06] MEDS: SODIUM CHLORIDE 0.9% IV 1,000 ML 999 ML IV CONT
[2020-08-06 00:16] VITALS: BP 127/84; PULSE 92; RESP 18; O2SAT 99
--- NOTE | 2020-08-06 00:46 | ED.NEUROSD ---
HPI - Neuro Symptoms/Deficit General Chief Complaint: Extremity Problem,Nontraumatic Stated Complaint: left sided numbness from head to shoulder Time Seen by Provider: 08/05/20 22:00 Source: patient Mode of arrival: ambulatory Limitations: no limitations History of Present Illness HPI Narrative: Patient is a 34-year-old female complaining of left-sided numbness, face and left upper extremity that started yesterday around 3 PM. Patient denies any speech or visual disturbance, focal weakness or unsteady gait. Patient denies any chest pain, shortness of breath, Deondre pain, nausea, vomiting, fever or chills. Related Data Allergies Allergy/AdvReac Type Severity Reaction Status Date / Time No Known Allergies Allergy Verified 08/05/20 21:05 Review of Systems Review of Systems: All systems reviewed & are unremarkable except as noted in HPI and below Constitutional: Constitutional: Denies body ache(s), Denies chills, Denies excessive sweating, Denies fatigue, Denies fever(s), Denies headache(s), Denies lethargy, Denies malaise, Denies weakness and Denies weight loss Eyes: Eyes: Denies blurry vision, Denies change in vision and Denies loss of vision ENT: Denies dizziness, Denies ear discharge, Denies headache(s), Denies lip swelling, Denies epistaxis, Denies nasal congestion, Denies neck pain, Denies throat swelling and Denies tongue swelling Cardiovascular: Cardiovascular: Denies chest pain, Denies chest pain at rest, Denies chest pain with activity, Denies diaphoresis, Denies rapid heart rate, Denies edema, Denies irregular heart rhythm, Denies lightheadedness, Denies palpitations, Denies dyspnea and Denies dyspnea on exertion Respiratory: Respiratory: Denies chest congestion, Denies cough, Denies hemoptysis, Denies dyspnea and Denies dyspnea on exertion Gastrointestinal: Gastrointestinal: Denies abdominal pain, Denies melena, Denies hematochezia, Denies diarrhea, Denies nausea, Denies vomiting and Denies hematemesis Musculoskeletal: Musculoskeletal: Denies abnormal gait, Denies deformity, Denies joint swelling, Denies limited range of motion, Denies neck pain and Denies numbness Neurologic: Denies Abnormal speech present, Denies abnormal gait, Denies confusion, Denies dizziness, Denies headache(s), Denies focal weakness, Denies loss of vision, Denies Other visual disturbances, Denies Sensory deficit (Neuro) and Denies weakness Psychiatric: Psychiatric: Denies confusion, Denies depression, Denies auditory hallucinations, Denies homicidal ideation and Denies suicidal ideation Endocrine: Endocrine: Denies cold intolerance, Denies excessive sweating, Denies fatigue, Denies heat intolerance and Denies palpitations Hematologic/Lymphatic: Hematologic/Lymphatic: Denies easy bleeding and Denies easy bruising Allergic/Immunologic: Allergic/Immunologic: Denies lip swelling, Denies throat swelling and Denies tongue swelling PMFSH Past Medical History Medical History Patient denies medical problems Surgical History Surgical History No significant past surgical history Family History Family History Unknown No family history of disorders Social History Social History Social History: The patient has a significant other. She states that she does have a job. She has 1 son called Terrance. 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 She is a full code. She is a smoker drink or use illicit drugs. Smoking status: Never smoker Alcohol intake: current Drinks per week: 1 Substance use: never Substance use type: does not use Spiritual care concerns: No Comments Past medical history: None Social history: Non-smoker, no drug use, occasional EtOH use Exam Const: General: cooperative, healt
[2020-08-06 01:14] VITALS: BP 130/86; PULSE 87; RESP 18; O2SAT 97
--- NOTE | 2020-08-09 19:21 | PC.NURSE ---
LATE ENTRY This note is being entered to document information to the patient's record. The following information was omitted on [],ns iv stoped @[id number] by [].
== END 2020-08-06 01:27 | disposition home or self-care (01) ==
PROVIDERS: Emergency Medicine; Emergency Provider Emergency Medicine
DX: R20.0 Anesthesia of skin (principal); R94.31 Abnormal electrocardiogram [ECG] [EKG]
CPT/HCPCS: 36415; 70450; 70496; 70498; 71045; 80048; 81025; 84484; 85025; 85610; 85730; 93005; 99284; J7030; Q9967

== ENCOUNTER 2020-08-30 18:40 | Emergency (ER) | payer SELFPAY ==
[2020-08-30 18:50] VITALS: BP 128/88; PULSE 92; RESP 16; TEMP 37.3; O2SAT 99
--- NOTE | 2020-08-30 18:52 | ED.GENADULT ---
HPI - General Adult General Chief complaint: Arrhythmia/Palpitations Stated complaint: chest palpitations Time Seen by Provider: 08/30/20 18:55 Source: patient and RN notes reviewed Mode of arrival: ambulatory Limitations: no limitations History of Present Illness HPI narrative: 34-year-old female presents concern for palpitations. Reports prior to arrival she had what she felt like a fast heartbeat for approximately 1 hour. She denies any chest pain, trouble breathing, diaphoresis, nausea, syncope or near syncope during this episode of fast heartbeat. She denies any diagnosis or problems with her heart in the past. She reports several years ago she had a isolated incident of palpitations that was never diagnosed as anything significant. She denies current fast heartbeat, palpitations, shortness of breath, chest pain. MD complaint: Palpitations Related Data Home Medications Medication Instructions Recorded Confirmed No Home Medications 08/30/20 08/30/20 Allergies Allergy/AdvReac Type Severity Reaction Status Date / Time No Known Allergies Allergy Verified 08/30/20 18:55 Review of Systems Review of Systems: Narrative: CONSTITUTIONAL: Denies malaise, chills, sweats, or fever. CARDIOVASCULAR: Denies chest pain, palpitations, or edema. RESPIRATORY: Denies cough or dyspnea. GASTROINTESTINAL: Denies nausea, vomiting NEUROLOGIC: Denies numbness, weakness, or headache. All systems reviewed & are unremarkable except as noted in HPI and below PMFSH Past Medical History Medical History Patient denies medical problems Surgical History Surgical History No significant past surgical history Family History Family History Unknown No family history of disorders Social History Social History Social History: The patient has a significant other. She states that she does have a job. She has 1 son called Terrance. No durable power salad maker for healthcare. She is a full code. She is a smoker drink or use illicit drugs. Smoking status: Never smoker Alcohol intake: current Drinks per week: 1 Substance use: never Substance use type: does not use Spiritual care concerns: No Comments At time of signature, agree with nursing past medical, surgical, social and family history. There is no relevant family history pertinent to the presenting complaint Exam Narrative: Exam Narrative: GENERAL: Well-appearing, well-nourished, and in no acute distress. HEAD: Normocephalic, atraumatic. EYES: PERRLA, conjunctivae clear ENT: Mucous membranes moist. NECK: Supple. No lymphadenopathy. No jugular venous distension, thyromegaly, or carotid bruits. Carotids were easily palpable bilaterally. CHEST: No respiratory distress. Clear to auscultation. No bony deformities, no asymmetry. Speaks in full sentences. HEART: Regular rate and rhythm. No murmur heard. Normal peripheral pulses. Capillary refill less than 3 seconds SKIN: Warm, dry, no rash. NEURO: Alert and oriented x3. PSYCH: Normal mood and affect Course Course Emergency Course: Discussed with patient following up with her primary care provider for further evaluation of her history of palpitations. Gave reasons to go to the emergency room if symptoms return with chest pain, shortness of breath, syncope etc. Patient is aware of, understands and agrees to treatment plan. Anticipatory guidance given. Patient agrees to follow-up as directed and is aware of reasons to seek care at the emergency department. Portions of this record may have been created with voice recognition software Vital Signs Vital signs: Vital Signs Temperature 99.2 F 08/30/20 18:50 Pulse Rate 92 08/30/20 18:50 Respiratory Rate 16 08/30/20 18:50 B
== END 2020-08-30 19:07 | disposition home or self-care (01) ==
PROVIDERS: Emergency Provider Nurse Practitioner; PCP Physician Assistant
DX: R00.2 Palpitations (principal)
CPT/HCPCS: 99211; G0463

== ENCOUNTER 2022-08-10 11:36 | Emergency (ER) | payer MEDICAID, SELFPAY ==
--- NOTE | ~2022-08-10 | US_ITS ---
EXAMINATION: US OB <= 14 weeks fetus DATE: 08/10/2022 12:48 INDICATION: Vaginal bleeding. TECHNIQUE: Real-time transabdominal pelvic ultrasound was performed. COMPARISON: None. FINDINGS: The uterus measures 13.8 x 7.9 x 10.9 cm. There is an intrauterine gestational sac. The crown r ump length measures 5.6 cm, which correlates with an estimated gestational age of 12 weeks and 1 day( s) (+/-) 1 week(s) and 1 day(s). heart motion is not identified by M-mode Doppler. The ovaries are not visualized. There is no free fluid in the pelvis. IMPRESSION: 1. demise. Reviewed, dictated and finalized at location A. IMPRESSION: 1. demise.
[2022-08-10 11:37] VITALS: BP 121/66; PULSE 69; RESP 16; TEMP 36.6; O2SAT 99
--- NOTE | 2022-08-10 12:20 | ED.PREGNANCY ---
HPI - General Chief complaint: Vaginal Bleeding Stated complaint: vaginal bleeding - 17 weeks Time Seen by Provider: 08/10/22 12:01 History of Present Illness HPI Narrative: Patient is a 36-year-old female G2, P1 at approximately 17 weeks gestation presenting with vaginal bleeding. Patient states that yesterday she began having some vaginal bleeding that then seemed to resolve. Today she was taking a shower and she noticed more vaginal bleeding so she became concerned. She denies cramping or pain. Denies lightheadedness. Denies further complaints. Related Data Home Medications Medication Instructions Recorded Confirmed No Home Medications 08/30/20 08/30/20 Allergies Allergy/AdvReac Type Severity Reaction Status Date / Time No Known Allergies Allergy Verified 08/30/20 18:55 Review of Systems Review of Systems: All systems reviewed & are unremarkable except as noted in HPI and below PMFSH Past Medical History Medical History Patient denies medical problems Surgical History Surgical History No significant past surgical history Family History Family History Unknown No family history of disorders Social History Social History Social History: The patient has a significant other. She states that she does have a job. She has 1 son called Terrance. No durable power erisa attorney for healthcare. She is a full code. She is a smoker drink or use illicit drugs. Smoking status: Never smoker Alcohol intake: current Drinks per week: 1 Substance use: never Substance use type: does not use Spiritual care concerns: No Exam Narrative: GENERAL: Well-appearing, well-nourished, and in no acute distress. HEAD: Normocephalic, atraumatic. EYES: PERRLA and EOMI. ENT: Nares clear, no rhinorrhea or epistaxis. Mucous membranes moist. NECK: Supple. CHEST: Clear to auscultation. No respiratory distress. HEART: Regular rate and rhythm ABDOMEN: Soft, appropriately gravid abdomen, nontender, no guarding or rebound EXTREMITIES: Normal range of motion. No edema. SKIN: Warm, dry, no rash. NEURO: No focal deficits. Alert and oriented x3. PSYCH: Normal mood and affect. Course Vital Signs Vital signs: Vital Signs Temperature 97.9 F 08/10/22 11:37 Pulse Rate 69 08/10/22 11:37 Respiratory Rate 16 08/10/22 11:37 Blood Pressure 121/66 08/10/22 11:37 Pulse Oximetry 99 08/10/22 11:37 Oxygen Delivery Room Air 08/10/22 11:37 Temperature 97.9 F 08/10/22 11:37 Pulse Rate 65 08/10/22 15:09 Respiratory Rate 18 08/10/22 15:09 Blood Pressure 118/74 08/10/22 15:09 Pulse Oximetry 99 08/10/22 15:09 Oxygen Delivery Room Air 08/10/22 11:37 MDM - OB/Uterine Contractions MDM Narrative Medical decision making narrative: Patient is a 36-year-old female presenting with vaginal bleeding in the setting of second trimester . Vitals within normal limits. Exam remarkable for the above. Plan for blood work, ultrasound. Ultrasound shows demise. Blood work is unremarkable. Patient is O+, will not require RhoGAM. Spoke with Dr. Kim who has sent her chart to his clinic. They will be calling her shortly to schedule close follow-up on August 12. Discussed appropriate bleeding precautions with the patient and her sister. They voiced understanding and are agreeable with this plan. Discharged in stable condition. Differential Diagnosis Differential diagnosis: Likely other (vaginal bleeding in , miscarriage) Medical Records Attestation: I reviewed the patient's medical records. Lab Data Attestation: I reviewed the patient's lab results. 08/10/22 12:47 08/10/22 12:47 Labs: Lab Results
[2022-08-10 12:53] LABS: Basophils Percent Auto 0.3 % (0.2-1.2); Eosinophils Absolute Auto 0.1 K/mm3 (0-0.3); Eosinophils Percent Auto 0.9 % (0-4.4); Hematocrit 33.1 % (37.0-47.0); Hemoglobin 10.7 g/dL (12.0-15.0); Immature Granulocyte Absolute 0.06 K/mm3 (0.00-0.031); Immature Granulocyte Percent A 0.6 % (0-0.5); Lymphocytes Absolute Auto 2.09 K/mm3 (0.9-3.2); Lymphocytes Percent Auto 20.8 % (18.3-44.2); Mean Corpuscular HGB Conc 32.3 g/dl (32-36); Mean Corpuscular Hemoglobin 28.2 pg (26-34); Mean Corpuscular Volume 87.3 fl (80-100); Mean Platelet Volume 8.7 fl (7.4-10.4); Monocytes Absolute Auto 0.8 K/mm3 (0.1-0.6); Monocytes Percent Auto 7.7 % (2.6-8.5); Neutrophils Percent Auto 69.7 % (45.5-73.1); Platelet Count Result 386 k/mm3 (150-375); Red Blood Count 3.79 M/mm3 (4.2-5.4); Red Cell Distribution Width 14.2 % (11.5-14.5)
[2022-08-10 13:02] LABS: Alanine Aminotransferase 15 U/L (6-35); Albumin Level 4.1 g/dL (3.5-5.1); Alkaline Phosphatase 48 U/L (38-126); Anion Gap 8 mmol/L (8-16); Aspartate Amino Transferase 18 U/L (14-36); Bilirubin,Total 0.3 mg/dL (0.2-1.3); Blood Urea Nitrogen 6 mg/dL (7-17); Calcium 9.5 mg/dL (8.4-10.2); Carbon Dioxide 25 mmol/L (22-30); Chloride 105 mmol/L (98-107); Estimated Glomerular Filt Rate > 60; Glucose 103 mg/dL (65-110); Potassium 3.5 mmol/L (3.4-5.0); Prothrombin Time 13.3 Seconds (11.1-14.7); Sodium 138 mmol/L (137-145)
[2022-08-10 13:18] LABS: Beta HCG Quantitative 397.35 mIU/ML
[2022-08-10 15:09] VITALS: BP 118/74; PULSE 65; RESP 18; O2SAT 99
== END 2022-08-10 15:10 | disposition home or self-care (01) ==
PROVIDERS: Emergency Provider Emergency Medicine; PCP Physician Assistant
DX: O02.1 Missed abortion (principal)
CPT/HCPCS: 36415; 76801; 80053; 84702; 85025; 85461; 85610; 85730; 86850; 86900; 86901; 99284

== ENCOUNTER 2022-08-13 01:40 | Observation (INO) | payer MEDICAID, SELFPAY ==
[2022-08-12 14:06] VITALS: BP 115/74; PULSE 88; RESP 16; TEMP 37.2; O2SAT 99; BMI 28.1
--- NOTE | 2022-08-12 14:36 | PC.NURSE ---
Report to the Outpatient Waiting Room, entrance under the green pavilion located off [facility], at time __12:45 PM on date __08/13/22 . Planned Procedure Time: __2:45PM . Time changes happen often and if your time is changed the preop area will call you the afternoon before. - You and your visitor will be asked to self-screen and do not enter if you have any COVID symptoms. - A mask is optional within the hospital at this time. Patients may have clear liquids (water, carbonated beverages, clear teas, apple juice) until 3 hours prior to surgery with a maximum of 20 ounces. - No food from midnight until time of surgery Take the following medications with a SIP of water the morning of surgery: ___NONE DO NOT STOP ANY OF YOUR OTHER PRESCRIPTION MEDICATIONS PRIOR TO SURGERY ?EXCEPT THE FOLLOWING Medications to discontinue per physician NONE Date to take last dose Please no make-up, nail cayman islander, hairspray, perfume, deodorant, or body powder the day of surgery. No jewelry (including any body piercings) or valuables the day of surgery, leave them at home. Please take a shower or bath the night before, or the morning of, surgery with an antibacterial soap. Wear comfortable, loose fitting clothing. Children are encouraged to wear pajamas. - Jewelry must be removed prior to entering the operating room. Rings and piercings that are not removed may be cut off. - The hospital will not accept responsibility for valuables. - Please leave all valuables, including medications, at home the day of surgery. If you are going home after surgery, a licensed pile driver operator must drive you home. - NO public transportation without another adult if you receive anesthesia. - We recommend that an adult stay with you for 24 hours following discharge. - We also recommend that you do not drive, make important decision, drink alcoholic beverages, or take any drugs that were not prescribed by your health care provider for at least 24 hours after your discharge time. Follow any additional instructions given to you from your surgeon. If you or anyone in your household have experienced Covid symptoms in the past week, please notify your surgeon or the nurse liaison at the phone number below for possible testing. Telephone instructions given to __PATIENT THROUGH INTERPRETER and asked if any additional questions and then verbalized understanding. Patient advised to call surgeon office or pre surgery nurse liaison [phone] if any additional questions.
[2022-08-13] VITALS (13 sets, daily range): BP systolic 106–140; BP diastolic 67–82; PULSE 72–98; RESP 16–20; TEMP 36.4–37; O2SAT 95–100
--- NOTE | ~2022-08-13 | US_ITS ---
EXAMINATION: US OB <=14 wk fetus w TV DATE: 08/13/2022 08:15 INDICATION: demise. TECHNIQUE: Real-time transabdominal and transvaginal pelvic ultrasound was performed. COMPARISON: Ultrasound 08/10/2022 FINDINGS: TRANSABDOMINAL ULTRASOUND: The uterus measures 13.2 x 7.6 x 7.1 cm. TRANSVAGINAL ULTRASOUND: There is no visible intrauterine gestational sac. The endometrial complex me asures 2.7 cm in thickness with internal vascular flow. The right ovary measures 2.4 x 3.0 x 2.0 cm. The left ovary is not visualized. There is no free fluid in the pelvis. IMPRESSION: 1. Thickened endometrial complex with internal vascular flow, consistent with retained products of c onception. Reviewed, dictated and finalized at location A. IMPRESSION: 1. Thickened endometrial complex with internal vascular flow, consistent with retained products of conception.
--- NOTE | 2022-08-13 02:20 | ED.FEMALEGU ---
HPI - Female Genitourinary General Chief complaint: SOAP SLABBER <Joann Guzman PA-C - Last Filed: 08/13/22 04:21> Stated complaint: miscarriage <Joann Guzman PA-C - Last Filed: 08/13/22 04:21> Time Seen by Provider: 08/13/22 02:08 <Joann Guzman PA-C - Last Filed: 08/13/22 04:21> History of Present Illness HPI Narrative: 36-year-old Bhutanese speaking female, G2, P1 who was approximately 12 weeks , diagnosed with demise on 08/10 reports for evaluation of vaginal bleeding. She was seen on 08/10 for having some vaginal bleeding that since resolved, diagnosed with demise and advised to follow-up with Dr. Kim. She saw Dr. Kim on 08/12 with plan to proceed with D&C for management of early loss. She came to the ED due to increased lower abdominal pain and cramping that started 4 hours ago, then developed heavy bleeding and passed products of conception ~1 hour ago. She reports changing her pad 2x in the past hour. Denies fever, chest pain shortness of breath, lightheadedness or syncope, vision changes, urinary complaints, vaginal discharge. She did bring the POC she had passed to the ED which is a ~12 week intact fetus. <Joann Guzman PA-C - Last Filed: 08/13/22 04:21> Related Data Home medications: Home Medications Medication Instructions Recorded Confirmed No Home Medications 08/12/22 08/12/22 <Joann Guzman PA-C - Last Filed: 08/13/22 04:21> Allergies/Adverse reactions: Allergies Allergy/AdvReac Type Severity Reaction Status Date / Time No Known Allergies Allergy Verified 08/12/22 14:04 <Joann Guzman PA-C - Last Filed: 08/13/22 04:21> Review of Systems Review of Systems: CONSTITUTIONAL: Denies fever, chills EYES: Denies visual changes, redness, or discharge. ENT: Denies rhinorrhea, congestion, sore throat, or otalgia. CARDIOVASCULAR: Denies chest pain, palpitations, or edema. RESPIRATORY: Denies cough or dyspnea. GASTROINTESTINAL: See HPI GENITOURINARY: Denies dysuria or hematuria. SKIN: Denies rash or itching. MUSCULOSKELETAL: Denies back pain, joint pain, or myalgia. NEUROLOGIC: Denies headache, numbness, dizziness, or weakness. PSYCHIATRIC: Denies anxiety or depression. <Joann Guzman PA-C - Last Filed: 08/13/22 04:21> [facility]LY [facility] Past Medical History Medical History: Medical History Missed ab Patient denies medical problems <ORAL Junior Last Filed: 08/13/22 04:21> Surgical History Surgical History: Surgical History No significant past surgical history <ORAL Junior Last Filed: 08/13/22 04:21> Family History Family History: Family History Unknown No family history of disorders <ORAL Junior Last Filed: 08/13/22 04:21> Social History Social History: Social History (Updated 08/12/22 @ 09:08 by Meliza Fry CMA) Social History: The patient has a significant other. She states that she does have a job. She has 1 son called Terrance. No durable power corporate associate attorney for healthcare. She is a full code. She is a smoker drink or use illicit drugs. Smoking status: Never smoker Alcohol intake: current Drinks per week: 1 Substance use: never Substance use type: does not use Living arrangements: with family Additional living arrangements comments: SONIZABELLA Occupation/Education: unemployed Gender identity (if verbalized by the patient): Female Spiritual care concerns: No <ORAL Junior Last Filed: 08/13/22 04:21> Exam Narrative: GENERAL: Well-appearing, in no acute distress. Patient resting comfortably in exam bed. HEAD: Normocephalic NECK: Supple. CHEST: No respiratory distress. Clear to auscultation, no adventitious breath sounds. HEART: Regular rate and rhyt
--- NOTE | 2022-08-13 02:29 | PC.NURSE ---
Pt brought in a paper towel holding her products of conception. Upon assessment of the products, a small fetus was discovered. demise protocol is now being implemented.
[2022-08-13 03:21] LABS: Basophils Percent Auto 0.3 % (0.2-1.2); Eosinophils Absolute Auto 0.2 K/mm3 (0-0.3); Eosinophils Percent Auto 1.4 % (0-4.4); Hematocrit 33.1 % (37.0-47.0); Hemoglobin 10.9 g/dL (12.0-15.0); Immature Granulocyte Absolute 0.08 K/mm3 (0.00-0.031); Immature Granulocyte Percent A 0.7 % (0-0.5); Lymphocytes Absolute Auto 2.62 K/mm3 (0.9-3.2); Lymphocytes Percent Auto 22.4 % (18.3-44.2); Mean Corpuscular HGB Conc 32.9 g/dl (32-36); Mean Corpuscular Hemoglobin 29.1 pg (26-34); Mean Corpuscular Volume 88.5 fl (80-100); Monocytes Absolute Auto 0.6 K/mm3 (0.1-0.6); Monocytes Percent Auto 4.8 % (2.6-8.5); Neutrophils Absolute Auto 8.2 K/mm3 (1.3-6.7); Neutrophils Percent Auto 70.4 % (45.5-73.1); Platelet Count Result 391 k/mm3 (150-375); Red Blood Count 3.74 M/mm3 (4.2-5.4); Red Cell Distribution Width 14.2 % (11.5-14.5); White Blood Count 11.7 K/mm3 (4.5-10.0)
[2022-08-13 03:31] LABS: Alanine Aminotransferase 13 U/L (6-35); Albumin Level 4.1 g/dL (3.5-5.1); Alkaline Phosphatase 58 U/L (38-126); Anion Gap 9 mmol/L (8-16); Aspartate Amino Transferase 16 U/L (14-36); Bilirubin,Total 0.4 mg/dL (0.2-1.3); Blood Urea Nitrogen 5 mg/dL (7-17); Calcium 9.2 mg/dL (8.4-10.2); Carbon Dioxide 23 mmol/L (22-30); Chloride 105 mmol/L (98-107); Estimated CRCL calculation 112 ml/min; Estimated Glomerular Filt Rate > 60; Glucose 116 mg/dL (65-110); Potassium 3.8 mmol/L (3.4-5.0); Sodium 137 mmol/L (137-145)
[2022-08-13 03:32] LABS: Prothrombin Time 13.7 Seconds (11.1-14.7)
[2022-08-13 03:33] LABS: Partial Thromboplastin Time 28.4 SECONDS (22.3-36.8)
[2022-08-13] MEDS: SODIUM CHLORIDE 0.9% IV 1,000 ML 999 ML IV CONT (03:50)
[2022-08-13] MEDS: MORPHINE SULFATE (*CRX) 4 MG/ML INJ IV PUSH (03:51)
[2022-08-13 03:55] LABS: Beta HCG Quantitative 206.16 mIU/ML
--- NOTE | 2022-08-13 04:00 | PC.NURSE ---
Spoke with Vangie at corn cutter operator's office. All questions addressed.
[2022-08-13] MEDS: KETOROLAC 30 MG/ML VIAL (*BKC) IV PUSH (04:07)
[2022-08-13 04:19] LABS: Add Urine Microscopic? YES; Appearance Urine Clear (Clear); Bacteria Urine None Seen /hpf; Bilirubin Urine Negative (Negative); Blood Urine 3+ (Negative); Color Urine Yellow (Yellow); Glucose Urine UA Negative (Negative); Ketones Urine Negative (Negative); Leukocyte Esterase Ur Negative LEU/UL (Negative); Need Manual Microscopic Reviewed; Nitrate Urine Negative (Negative); Non Pathogenic Casts 0-2; Protein Urine Negative (Negative); RBC Urine 21-50 /hpf (0-2); Specific Grav Ur 1.005 (1.001-1.035); Squamous Epithelial Cell Urine None seen /hpf (Few); Urobilinogen Urine 0.2 mg/dL (<2.0); WBC Urine 0-5 /hpf; pH Urine 6.5 (5.0-9.0)
--- NOTE | 2022-08-13 04:45 | PC.NURSE ---
disposition form was signed by pt. Fetus was placed in a specimen container and taken to the lab by this RN.
[2022-08-13] MEDS: SODIUM CHLORIDE 0.9% IV 1,000 ML 125 ML IV CONT (05:44)
--- NOTE | 2022-08-13 07:18 | PM.IMHP ---
H&P: HPI History of Present Illness Date/Time: 08/13/22 07:18 Chief Complaint: vaginal bleeding and cramping Narrative: Rosa Elena is a 36yo who presented to the ER with a spontaneous missed ; she passed the products at home and was continuing to bleed and cramp in the ER and decision was made to admit. She is scheduled for suction D&C with Dr. Kim this afternoon. She was suspected to be approximately 17 weeks along. Prior pelvic ultrasound showed an intrauterine gestation measuring 12 weeks with no cardiac activity. She denies any fever, chills, nausea, vomiting. Bleeding and pain is much improved today Review of Systems Constitutional: Constitutional: Denies chills, Denies fever(s) and Denies headache(s) ENT: Denies dizziness and Denies headache(s) Cardiovascular: Cardiovascular: Denies chest pain and Denies dyspnea Respiratory: Respiratory: Denies cough and Denies dyspnea Gastrointestinal: Gastrointestinal: Denies abdominal pain and Denies change in stool character Genitourinary: Genitourinary: Reports abnormal vaginal bleeding, Reports pelvic pain, Denies vaginal discharge, Denies vaginal odor and Denies vaginal pruritus Neurologic: Denies dizziness and Denies headache(s) Psychiatric: Psychiatric: Denies anxiety and Denies depression [facility] Past Medical History Medical History Missed ab Patient denies medical problems Surgical History Surgical History No significant past surgical history Family History Family History Unknown No family history of disorders Social History Social History (Updated 08/12/22 @ 09:08 by Meliza Fry CMA) Social History: The patient has a significant other. She states that she does have a job. She has 1 son called Terrance. 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 She is a full code. She is a smoker drink or use illicit drugs. Smoking status: Never smoker Alcohol intake: current Drinks per week: 1 Substance use: never Substance use type: does not use Living arrangements: with family Additional living arrangements comments: SON-TERRANCE Occupation/Education: unemployed Gender identity (if verbalized by the patient): Female Spiritual care concerns: No Meds Home Medications and Allergies Home Medications Medication Instructions Recorded Confirmed Type No Home Medications 08/12/22 08/12/22 History Allergies Allergy/AdvReac Type Severity Reaction Status Date / Time No Known Allergies Allergy Verified 08/12/22 14:04 Vital Signs Vital Signs - 24 hr 08/13/22 01:47 08/13/22 04:29 08/13/22 05:13 Temperature 98.1 F Pulse Rate 81 82 86 Respiratory Rate 18 17 20 Blood Pressure 140/82 120/69 126/75 Pulse Oximetry 100 98 99 Oxygen Delivery Room Air 08/13/22 05:44 Temperature 98.2 F Pulse Rate 84 Respiratory Rate 16 Blood Pressure 127/70 Pulse Oximetry Oxygen Delivery Exam Const: General: cooperative, healthy appearing, comfortable and no acute distress Orientation/consciousness: patient oriented x3 Resp: Effort & Inspection: normal respiratory effort Cardio: Rate: regular rate GI: Inspection: normal to inspection GI Palp: No abdominal tenderness and Yes Soft to palpation : Other: small amount of blood on the pad (~5cc over the last two hours) Skin: General skin exam: normal color Neuro: General: patient oriented x3 Extrem: General: normal to inspection Psych: Appearance: grossly normal Affect: normal affect Attitude: cooperative H&P: Results Labs Labs: Short CBC 08/13/22 Range/Units 02:51 WBC 11.7 H (4.5-10.0) K/mm3 Hgb 10.9 L (12.0-15.0) g/dL Hct 33.1 L (37.0-47.0) % Plt Count 391 H (150-375) k/mm3 BMP 08/13/22 02:51 Sodium 137 Potassium 3.8 Chloride 105 Carbon Dioxid
--- NOTE | 2022-08-13 07:31 | WPDHPUPDATE1 ---
History and Physical Update Update Date/Time: 08/13/22 07:31 History and Physical has been reviewed, including an updated exam of the patient. There are NO changes in the patient's condition. Risks, benefits, and alternatives have been discussed and questions answered. Patient agrees to proceed with procedure.
[2022-08-13 07:39] LABS: Hematocrit 33.1 % (37.0-47.0); Hemoglobin 10.6 g/dL (12.0-15.0)
--- NOTE | 2022-08-13 08:28 | PC.NURSE ---
0750-To U/S via wheelchair; RN waited with pt and returned to OB 1st floor; pt tolerated well.
[2022-08-13] MEDS: LACTATED RINGERS 1,000 ML 30 ML IV CONT (12:10)
[2022-08-13] MEDS: ACETAMINOPHEN 500 MG TABLET 1000 MG PO (12:25)
[2022-08-13] MEDS: DOXYCYCLINE 100 MG/NS 100 ML 100 MG/100 ML BAG IVPB (12:25)
--- NOTE | 2022-08-13 12:41 | WPDANESEPPF ---
Anes - Initial Pre Proc Eval Procedure: Operation Date: 08/13/22 14:45 Proposed Procedures p Suction Dilation and Curettage - Hero Kim MD Date/Time: 08/13/22 12:41 Surgeon: Meme Gilliam MD Pre Op Diagnosis: Demise/Spontaneous Patient Data Age: 36 Gender: F Height: 1.55 m Weight: 67.59 kg Last Vital Signs Temp 98.0 F 08/13/22 11:30 Pulse 82 08/13/22 11:32 Resp 16 08/13/22 11:30 BP 122/73 08/13/22 11:32 Pulse Ox 99 08/13/22 11:30 O2 Del Method Room Air 08/13/22 01:47 Allergies Allergy/AdvReac Type Severity Reaction Status Date / Time No Known Allergies Allergy Verified 08/13/22 12:41 Home Medications Medication Instructions Recorded Confirmed Type No Home Medications 08/12/22 08/12/22 History Laboratory Tests 08/13/22 08/13/22 08/13/22 02:51 03:54 07:14 WBC 11.7 H K/mm3 (4.5-10.0) RBC 3.74 L M/mm3 (4.2-5.4) Hgb 10.9 L g/dL 10.6 L g/dL (12.0-15.0) (12.0-15.0) Hct 33.1 L % 33.1 L % (37.0-47.0) (37.0-47.0) MCV 88.5 fl (80-100) MCH 29.1 pg (26-34) MCHC 32.9 g/dl (32-36) RDW 14.2 % (11.5-14.5) Plt Count 391 H k/mm3 (150-375) MPV 9.0 fl (7.4-10.4) Immature Gran % (Auto) 0.7 H % (0-0.5) Neut % (Auto) 70.4 % (45.5-73.1) Lymph % (Auto) 22.4 % (18.3-44.2) [place] % (Auto) 4.8 % (2.6-8.5) Eos % (Auto) 1.4 % (0-4.4) Baso % (Auto) 0.3 % (0.2-1.2) Lymph # (Auto) 2.62 K/mm3 (0.9-3.2) [place] # (Auto) 0.6 K/mm3 (0.1-0.6) Eos # (Auto) 0.2 K/mm3 (0-0.3) Baso # (Auto) 0.0 K/mm3 (0.0-0.1) Abs Immat Gran (auto) 0.08 H K/mm3 (0.00-0.031) Absolute Neuts (auto) 8.2 H K/mm3 (1.3-6.7) Absolute Nucleated RBC 0.0 K/mm3 (0.0-0.012) Nucleated RBC % 0.0 % (0.0-0.2) PT 13.7 Seconds (11.1-14.7) INR 1.0 APTT 28.4 SECONDS (22.3-36.8) Sodium 137 mmol/L (137-145) Potassium 3.8 mmol/L (3.4-5.0) Chloride 105 mmol/L (98-107) Carbon Dioxide 23 mmol/L (22-30) Anion Gap 9 mmol/L (8-16) BUN 5 L mg/dL (7-17) Creatinine 0.50 L mg/dL (0.7-1.0) Estim Creat Clear Calc 112 ml/min Estimated GFR > 60 (59 - ) Glucose 116 H mg/dL (65-110) Calcium 9.2 mg/dL (8.4-10.2) Total Bilirubin 0.4 mg/dL (0.2-1.3) AST 16 U/L (14-36) ALT 13 U/L (6-35) Alkaline Phosphatase 58 U/L (38-126) Total Protein 7.0 g/dL (6.3-8.2) Albumin 4.1 g/dL (3.5-5.1) Beta HCG, Quant 206.16 mIU/ML Urine Color Yellow (Yellow) Urine Appearance Clear (Clear) Urine pH 6.5 (5.0-9.0) Ur Specific [place] 1.005 (1.001-1.035) Urine Protein Negative mg/dL (Negative) Urine Glucose (UA) Negative mg/dL (Negative) Urine Ketones Negative mg/dL (Negative) Ur Blood (Man) 3+ H (Negative) Urine Nitrate Negative (Negative) Urine Bilirubin Negative (Negative) Urine Urobilinogen 0.2 mg/dL (<2.0) Add Ur Microanalysis Reviewed Leukocyte Esterase Rfl Negative KAYLA/UL (Negative) Urine RBC 21-50 H /hpf (0-2) Urine WBC 0-5 /hpf Ur Squamous Epith Cells None seen /hpf (Few) Urine Bacteria None seen /hpf Urine Casts 0-2 Patient hx anesthesia problems: none Family hx anesthesia problems: none Results Review: All pre-operative results and documents have been reviewed as part of the pre-operative evaluation. [facility] Past Medical History Medical History Missed
--- NOTE | 2022-08-13 12:47 | SUR.PREOP ---
1230- DR. KELLY TO SEE PT. TRANSIT MANAGER USED TO EXPLAIN PROCEDURE AND ANESTHESIA. UPDATED PT THAT SHE WAS HEADING BACK TO THE OR. PT INTRODUCED TO SENIOR MATERIALS PLANNER AND PLANIMETER OPERATOR. ALL QUESTIONS ANSWERED. FAMILY TO SURGICAL WAITING AREA
--- NOTE | 2022-08-13 13:12 | W.PM.PROC2 ---
Procedure Note - Detailed Date of Procedure 08/13/22 Pre-op Diagnosis Demise/Spontaneous Post-op Diagnosis Same Procedure Performed Suction Dilation & curettage Surgeon Hero Kim MD Anesthesia General Indications spontaneous missed on pelvic US Findings intrauterine products of conception Description of Procedure The patient was taken to the operating room after a missed had been noted on on transvaginal ultrasound. The risks, benefits and alternatives of the procedure were reviewed with the patient and informed consent was obtained. The patient was taken to the OR and anesthesia was noted to be adequate. The patient was placed in the dorsolithotomy position. Pelvic exam was performed with findings noted above. The patient was prepped and draped in the usual sterile fashion. Sterile speculum was placed in the vagina and the cervix was grasped with a tenaculum. The cervix was dilated further to allow for passage of a 8 mm suction curette. The 8 mm suction curette was gently advanced to the fundus, suction was activated, and the tip was rotated while being withdrawn to clear the uterus of products. This suction process was repeated 3 additional times due to the quantity of material in the uterus. The sharp curette was introduced and advanced to the fundus to remove any remaining products. The suction curette was reintroduced one final time to ensure all products had been removed. The tenaculum was removed. Good hemostasis was noted. Instrument, sponge, and sharp counts were correct. Patient tolerated the procedure well and was taken to the recovery room in stable condition. Estimated Blood Loss 5 Drains No Packing No Pathology Yes (products of conception ) Complications No immediate complications Condition Stable Disposition PACU [facility] Billing Surgery - Charge Forward: Surgery Billing
[2022-08-13] MEDS: DOXYCYCLINE HYCLATE 100 MG TABLET 200 MG PO (14:14)
--- NOTE | 2022-08-14 09:10 | WPDANESPN ---
Anes - Prog Note Post-Op Date/Time: 08/14/22 09:10 Cardiovascular status: normal Respiratory status: normal Airway patency: baseline Mental status: baseline Post-Op hydration status: normal Vital Signs: Last Vital Signs Temp 98.6 F 08/13/22 14:05 Pulse 72 08/13/22 14:10 Resp 16 08/13/22 14:05 BP 115/68 08/13/22 14:10 Pulse Ox 99 08/13/22 14:05 O2 Del Method Room Air 08/13/22 14:05 Pain Score (VAS): 0/10 Laboratory Tests 08/13/22 07:14 08/13/22 02:51 Post-procedural complaints: none Patient Feedback: Patient satisfied with anesthetic care.
--- NOTE | 2022-08-17 09:18 | PM.DS ---
DS: Admitting Diagnosis Discharge Date 08/13/22 Admitting Diagnosis spontaneous missed DS: Discharge Diagnosis Discharge Diagnosis (1) Missed ab: Code(s): O02.1 - Missed Status: Acute DS: Summary Hospital Course Hospital Course: 28-year-old who presented with spontaneous missed at approximately 12 weeks. Patient was scheduled for suction D&C and had acute onset of heavy bleeding overnight. Patient states she passed the fetus and emergency room. Patient was kept for observation. Repeat ultrasound in the morning showed retained products of conception and thickened endometrial lining. Patient underwent an uncomplicated suction D&C. Patient was then discharged postoperatively. Patient remained hemodynamically stable throughout her hospital course. Time Spent with Patient Time attestation: Total time spent providing and/or coordinating discharge services: Time spent: Less than 30 minutes DS: Data Data Completed and Pending Completed studies during hospitalization: Pending at discharge 08/13/22 02:33 Surgical [PTH] Routine 08/13/22 12:56 Surgical [PTH] Routine Discharge Plan Discharge Consulting providers: Joann Guzman; Chavo Alvarado V.; Lance Serrato; Saqib Gagnon Discharging Clinician: Hero Kim Patient Disposition: Home, Self-Care Activity: pelvic rest Diet: regular Patient Instructions: Antibiotic Form, Dilation and Curettage (DC) Patient Language: Romansh Stand Alone Forms: General Discharge Information Follow-up/Referrals: Hero Kim MD [Physician] - Discharge Medications: New acetaminophen 500 mg tablet 500 mg PO Q6H PRN (Reason: pain) Qty: 30 0RF ibuprofen 600 mg tablet 600 mg PO Q6H PRN (Reason: pain) Qty: 30 0RF Date of admission: 08/13/22 04:18 Primary Care Provider: AdelinaElida Admitting Provider: Meme Gilliam Attending physician on admission: Hero Kim Condition: Stable
== END 2022-08-13 14:55 | disposition home or self-care (01) ==
LOC: ANHED 02:55 → ANHOBPP 05:32
PROVIDERS: Admitting Provider Obstetrics & Gynecology; Emergency Provider Physician Assistant; PCP Physician Assistant; Visit Provider Student in an Organized Health Care Education/Training Program
PROC: (CPT 59820; principal; 2022-08-13 14:45)
DX: O02.1 Missed abortion (principal); Z3A.12 12 weeks gestation of pregnancy
CPT/HCPCS: 59820; 36415; 76801; 76817; 80053; 81001; 84702; 85014; 85018; 85025; 85610; 85730; 88305; 96374; 96375; 99285; A9270; G0378; J1885; J2250; J2270; J2704; J3010; J7030; J7120

== ENCOUNTER 2023-03-23 17:56 | Emergency (ER) | payer OTHER, SELFPAY ==
[2023-03-23 18:07] VITALS: BP 144/99; PULSE 102; RESP 16; TEMP 37.2; O2SAT 100
--- NOTE | 2023-03-23 18:29 | ED.HA ---
HPI - Headache General Chief Complaint: Headache Stated Complaint: Headaches Time Seen by Provider: 03/23/23 18:26 Source: patient and RN notes reviewed Mode of arrival: ambulatory Limitations: no limitations History of Present Illness HPI Narrative: 37-year-old female with a history of TIA presented for complaint of headache. Onset today at noon. Also had a headache 2 days ago. Today she took aspirin. Endorses occasional blurred vision and neck pain. Pain 7/10. Denies eye pain, dizziness, nausea, vomiting or fever. Related Data Allergies Allergy/AdvReac Type Severity Reaction Status Date / Time No Known Allergies Allergy Verified 03/23/23 17:58 Review of Systems Review of Systems: CONSTITUTIONAL: Denies body aches, fever, chills, or sweats. EYES: reports blurry vision at times Denies eye redness, or discharge. ENT: Denies rhinorrhea, congestion, sore throat, or otalgia. CARDIOVASCULAR: Denies chest pain, palpitations, or edema. RESPIRATORY: Denies cough or dyspnea. GASTROINTESTINAL: Denies abdominal pain, nausea, vomiting, or diarrhea. GENITOURINARY: Denies dysuria or hematuria. SKIN: Denies rash, itching, or wounds. MUSCULOSKELETAL: Denies back pain, joint pain, or myalgia. NEUROLOGIC: Endorses headache, denies numbness, tingling, weakness, or dizziness All systems reviewed & are unremarkable except as noted in HPI and below PMFSH Past Medical History Medical History Missed ab Patient denies medical problems Surgical History Surgical History H/O gynecological procedure D & C missed ab Family History Family History Unknown No family history of disorders Social History Social History Social History: The patient has a significant other. She states that she does have a job. She has 1 son called Terrance. No durable power energy attorney for healthcare. She is a full code. She is a smoker drink or use illicit drugs. Smoking status: Never smoker Alcohol intake: current Drinks per week: 1 Substance use: never Substance use type: does not use Living arrangements: with family Additional living arrangements comments: SON-TERRANCE Occupation/Education: unemployed Gender identity (if verbalized by the patient): Female Spiritual care concerns: No Comments At time of signature, I have reviewed and agree with nursing past medical, surgical, social and family history unless otherwise noted. Please see nursing chart for further information. There is no relevant family history pertinent to the presenting complaint Exam Narrative: GENERAL: Well-appearing, well-nourished HEAD: Normocephalic, atraumatic. EYES: PERRLA, EOMI. ENT: Mucous membranes pink and moist. No rhinorrhea. TMs normal bilaterally. NECK: Normal AROM. CHEST: No respiratory distress. Clear to auscultation. HEART: Regular rate and rhythm. No murmur appreciated. Normal peripheral pulses. ABDOMEN: Soft, nontender, nondistended, normal active bowel sounds. SKIN: Warm, dry, no rash. Capillary refill normal. Normal skin turgor. NEURO:No focal deficits. Alert and oriented x3. Finger to nose intact bilaterally. EOMs intact without nystagmus. No facial droop/asymmetry noted bilaterally. Grimace intact. Intact sensation in face. Hearing intact bilaterally. Shoulder shrug intact. Strength 5/5 bilateral upper extremities. Ambulatory exam with a normal based, steady gait. PSYCH: Normal affect. Course Course Emergency Course: Patient is aware of diagnosis, understands and agrees to treatment plan. Anticipatory guidance given. Patient agrees to follow-up as directed and is aware of reasons to seek care at the emergency department. Portions of this record may have been created with voice recognition software Level
[2023-03-23 18:39] VITALS: TEMP 37.2
[2023-03-23] MEDS: ACETAMINOPHEN 500 MG TABLET 1000 MG PO (18:39)
[2023-03-23 18:40] VITALS: TEMP 37.2
[2023-03-23] MEDS: IBUPROFEN 600 MG TABLET PO (18:40)
[2023-03-23 18:59] VITALS: TEMP 37.2
== END 2023-03-23 19:00 | disposition home or self-care (01) ==
PROVIDERS: Emergency Provider Nurse Practitioner Family; PCP Physician Assistant
DX: R51.9 Headache, unspecified (principal); Z86.73 Personal history of transient ischemic attack (TIA), and cerebral infarction without residual deficits; Z20.822 Contact with and (suspected) exposure to COVID-19
CPT/HCPCS: 87081; 87426; 87804; 87880; 99213; A9270; G0463

== ENCOUNTER 2024-07-21 13:24 | Emergency (ER) | payer OTHER, SELFPAY ==
--- NOTE | 2024-07-21 13:34 | ED.SKABFB ---
HPI - Skin/Abscess/Foreign Bdy General Chief complaint: Skin/Abscess/Foreign Body Stated complaint: blisters on face and back of ears Time Seen by Provider: 07/21/24 13:34 Source: patient, RN notes reviewed, old records reviewed and doughnut maker Mode of arrival: ambulatory Limitations: no limitations History of Present Illness HPI narrative: 38-year-old female presents to the [facility] with several red itchy bumps to her forehead, cheek and behind her ear. No vesicular areas. Patient describes him as very itchy Denies any new creams ointments lotions detergents. No treatment prior to right Related Data Allergies Allergy/AdvReac Type Severity Reaction Status Date / Time No Known Allergies Allergy Verified 07/21/24 13:44 Review of Systems Review of Systems: All systems reviewed & are unremarkable except as noted in HPI and below Constitutional: Constitutional: Reports no additional constitutional complaints ENT: Reports system reviewed and no additional complaints, except as documented Cardiovascular: Cardiovascular: Reports no additional cardiovascular complaints, Denies chest pain and Denies dyspnea Respiratory: Respiratory: Reports no additional respiratory complaints, Denies chest congestion, Denies cough and Denies dyspnea Musculoskeletal: Musculoskeletal: Reports no additional musculoskeletal complaints Integumentary/Breasts: Skin/Breast: Reports as per HPI and Reports rash PMFSH Past Medical History Medical History Missed ab Patient denies medical problems Surgical History Surgical History H/O gynecological procedure D & C missed ab Family History Family History Unknown No family history of disorders Social History Social History Social History: The patient has a significant other. She states that she does have a job. She has 1 son called Terrance. No durable power collections attorney for healthcare. She is a full code. She is a smoker drink or use illicit drugs. Smoking status: Never smoker Alcohol intake: current Drinks per week: 1 Substance use: never Substance use type: does not use Living arrangements: with family Additional living arrangements comments: SON-TERRANCE Occupation/Education: unemployed Gender identity (if verbalized by the patient): Female Spiritual care concerns: No Comments At the time of my signature, I reviewed and agree with the nursing past medical, surgical, social, and family history. There is no relevant family history pertinent to the patient complaint. Exam Const: General: cooperative, healthy appearing, comfortable, no acute distress, well developed, alert and well nourished Nutritional Appearance: well nourished Orientation/consciousness: patient oriented x3 Limitations: no limitations HENMT: Head: normal to inspection Ears: hearing grossly normal bilaterally, external ears normal, TM's normal bilaterally, EAC's normal, mastoids normal and no periauricular adenopathy Mouth: Yes Normal oral and palatal mucosa present, Yes lip normal, Yes tongue normal and Yes moist mucous membranes Throat: posterior oropharynx normal, uvula midline and no uvular edema Eyes: General: appearance normal, both eyes and all related structures Alignment and Position: alignment normal Neck: Neck: normal visual inspection, full ROM, no lymphadenopathy and no meningeal signs Chest: Chest palpation & inspection: normal inspection of the chest Resp: Effort & Inspection: normal respiratory effort and able to speak in complete sentences Auscultation: clear to auscultation bilaterally, no crackles, no rales, no rhonchi and no wheezes Cardio: Rate: regular rate Skin: General skin exam: normal color and no rashes or lesions noted Rashes: rashes noted Other: Red raised mom's to the forehead, right cheek and right neck. No vesicular area, no signs of cellulitic changes. Neuro: General: patient oriented x3, gait normal, moves all extremities and no meningeal signs Cognition (Neuro): normal cognition Speech: normal speech Gait exam (Neuro): Normal gait present Extrem: General: normal to inspection, full ROM, capillary refill normal and normal gait Psych: Appearance: grossly normal and well kempt Mental Status: mental status grossly normal Speech and movement: Normal speech and movement present and Clear speech present Affect: normal affect Attitude: cooperative Course Course Level of Care: Express Care Visit Vital Signs Vital signs: Vital Signs Temperature 97.6 F 07/21/24 13:40 Pulse Rate 90 07/21/24 13:40 Respiratory Rate 16 07/21/24 13:40 Blood Pressure 132/89 07/21/24 13:40 Pulse Oximetry 100 07/21/24 13:40 Oxygen Delivery Room Air 07/21/24 13:40 Temperature 97.6 F 07/21/24 13:40 Pulse Rate 90 07/21/24 13:40 Respiratory Rate 16 07/21/24 13:40 Blood Pressure 132/89 07/21/24 13:40 Pulse Oximetry 100 07/21/24 13:40 Oxygen Delivery Room Air 07/21/24 13:40 Reviewed MDM - Skin/Abscess/Foreign Bdy MDM Narrative Medical decision making narrative: Patient sitting exam room. Patient is nontoxic, vitals are stable. Patient presents with a rash to the right side of face. Patient appropriate for outpatient treatment with close follow-up Discharge instructions reviewed with patient, as well as provided in writing per nursing staff. The instructions also include specific and strict return/GO TO THE ER as well as f/u information. All questions have been answered, and the patient deny any further questions with discharge and discharge plan. Some parts of this dictation were generated by voice recognition software and may contain typographical and/or grammatical inaccuracies. Differential Diagnosis Differential diagnosis: Likely abscess of skin or subcutaneous tissue, urticaria, herpes zoster, allergic reaction to drug, cellulitis, eczema, insect bites and contact dermatitis Critical Care Time Critical Care Time Critical Care Time: No Discharge Plan Discharge Clinical Impression: Dermatitis Patient Disposition: Home Condition: Stable Instructions: Dermatitis (ED) Additional Instructions: The most important part of your care is follow up with Primary care provider. Take Benadryl 25-50 mg every 8 hours for itching Take Zyrtec every day for 14 days Take Pepcid 20mg daily for 14 days Apply hydrocortisone twice daily to affected area Avoid hot showers, Take cool showers. Hot showers will make rashes worse Apply cool compresses every 2-3 hours for 15 minutes Go to the ER for new or worsening symptoms such as shortness of breath. Patient Language: Citizen Of [place] Prescriptions: New methylprednisolone [Medrol ([place])] 4 mg tablets,dose pack See Rx Instructions PO .COMPLEX Qty: 21 0RF Rx Instructions: orally per package directions Follow-up/Referrals: Ramírez,MONI Faulkner [Primary Care Provider] - 1 Week Stand Alone Forms: Work/School Release IP Time of Disposition: 13:47
[2024-07-21 13:40] VITALS: BP 132/89; PULSE 90; RESP 16; TEMP 36.4; O2SAT 100
== END 2024-07-21 13:55 | disposition home or self-care (01) ==
PROVIDERS: Emergency Provider Nurse Practitioner; PCP Physician Assistant
DX: L30.9 Dermatitis, unspecified (principal)
CPT/HCPCS: 99213; G0463

== ENCOUNTER 2024-12-13 18:04 | Emergency (ER) | payer OTHER, SELFPAY ==
[2024-12-13 18:14] VITALS: BP 143/77; PULSE 92; RESP 16; TEMP 36.5; O2SAT 100
--- NOTE | 2024-12-13 18:19 | ED.URI ---
HPI - URI/Sore Throat General Chief Complaint: Upper Respiratory Infection Stated Complaint: sore throat/headache Time Seen by Provider: 12/13/24 18:19 Source: patient Mode of arrival: ambulatory Limitations: no limitations History of Present Illness HPI Narrative: 39 yo F presents with son with c/o sore throat, congestion, cough, headache and fatigue for 2 to 3 days. denies N/v. Afebrile. Taking ibuprofen to treat symptoms. All systems reviewed and negative except as noted above. Related Data Allergies Allergy/AdvReac Type Severity Reaction Status Date / Time No Known Allergies Allergy Verified 12/13/24 18:06 [facility] Past Medical History Medical History Missed ab Patient denies medical problems Surgical History Surgical History H/O gynecological procedure D & C missed ab Family History Family History Unknown No family history of disorders Social History Social History Social History: The patient has a significant other. She states that she does have a job. She has 1 son called Terrance. No durable power commercial real estate attorney for healthcare. She is a full code. She is a smoker drink or use illicit drugs. Alcohol intake: current Drinks per week: 1 Substance use: never Substance use type: does not use Living arrangements: with family Additional living arrangements comments: SON-TERRANCE Occupation/Education: unemployed Gender identity (if verbalized by the patient): Female Spiritual care concerns: No Comments At time of signature, agree with nursing past medical, surgical, social and family history. There is no relevant family history pertinent to the presenting complaint. Exam Narrative: GENERAL: This is a well-nourished, well-developed patient, in no apparent distress. HEAD: normocephalic, atraumatic. EYES: PERRL. Sclera clear/white. Vision is grossly intact. EARS: External ears normal, auditory canals clear and without drainage, TMs normal without perforation. Hearing grossly intact. NOSE: External nose normal with Clear nasal drainage THROAT: Mucous membranes moist, posterior pharynx clear. NECK: Neck supple, non-tender without lymphadenopathy, masses or thyromegaly. CARDIOVASCULAR: Regular rate and rhythm without murmurs, gallops, or rubs. RESPIRATORY: Clear to auscultation. Breath sounds equal bilaterally. No wheezes, rales, or rhonchi. SKIN: warm, Dry, intact with no suspicious lesions or rash, good texture and turgor. NEURO: awake, alert, and oriented to person, place and time. There were no obvious focal neurologic abnormalities. EXTREMITIES: No joint tenderness, effusion, or edema noted. Course Course Level of Care: Express Care Visit Vital Signs Vital signs: Vital Signs Temperature 36.5 C 12/13/24 18:14 Pulse Rate 92 12/13/24 18:14 Respiratory Rate 16 12/13/24 18:14 Blood Pressure 143/77 H 12/13/24 18:14 Pulse Oximetry 100 12/13/24 18:14 Oxygen Delivery Room Air 12/13/24 18:14 Temperature 36.5 C 12/13/24 18:14 Pulse Rate 92 12/13/24 18:14 Respiratory Rate 16 12/13/24 18:14 Blood Pressure 143/77 H 12/13/24 18:14 Pulse Oximetry 100 12/13/24 18:14 Oxygen Delivery Room Air 12/13/24 18:14 reviewed MDM - URI/Sore Throat MDM Narrative Medical decision making narrative: Negative COVID, influenza and strep test. Strep culture ordered. Patient is alert, nontoxic. Recommend [id number] medications to treat viral symptoms. Differential Diagnosis Differential diagnosis: Likely upper respiratory infection, sinusitis, viral infection, influenza and pharyngitis Discharge Plan Discharge Clinical Impression: Viral upper respiratory tract infection with cough Patient Disposition: Home Condition: Stable Instructions: Upper Respiratory Infection (ED) Additional Instructions: Vannessa pruebas de COVID, influenza y estreptococo dieron negativo hoy. Vannessa s?ntomas son virales y pueden durar de 10 a 14 d?as. [place] los medicamentos seg?n lo prescrito. Compre pseudoefedrina sin receta y t?[place] seg?n las indicaciones del envase. Lucia medicamento lo puede encontrar en la farmacia. Filomena deepa agua y descanse. Coloque un humidificador de vapor fr?o en lozano habitaci?n. Consulte a lozano m?dico si no mejora. Patient Language: Kinyarwanda Prescriptions: New benzonatate 200 mg capsule 200 mg PO TID PRN (Reason: cough) Qty: 20 0RF fluticasone propionate [Flonase Allergy Relief] 50 mcg/actuation spray,suspension 1 spray intranasal BID Qty: 16 0RF Rx Instructions: administer into each nostril Follow-up/Referrals: Ramírez,MONI Faulkner [Primary Care Provider, Family Practice] Stand Alone Forms: Work/School Release IP Time of Disposition: 18:40
[2024-12-13 18:21] LABS: EDSTREPNEGPOS1 Negative (Negative)
[2024-12-13 18:42] LABS: EDCOVIDSCREEN Negative (Negative); EDINFLUASCREEN Negative (Negative); EDINFLUBSCREEN Negative (Negative)
== END 2024-12-13 18:44 | disposition home or self-care (01) ==
PROVIDERS: Emergency Provider Nurse Practitioner Family; PCP Physician Assistant
DX: J06.9 Acute upper respiratory infection, unspecified (principal); R05.9 Cough, unspecified; Z20.822 Contact with and (suspected) exposure to COVID-19
CPT/HCPCS: 87081; 87426; 87804; 87880; 99213; G0463